=== PATIENT | male | born 1930 | race Caucasian/White ===

== ENCOUNTER → 2018-04-17 | Outpatient (CLI) | payer OTHER, MEDICARE | END | disposition home or self-care (01) | LOC: C.LABOUTLO 17:28 | PROVIDERS: ATTEND Internal Medicine | DX: R19.7 Diarrhea, unspecified (principal) ==

== ENCOUNTER 2018-05-04 19:55 | Inpatient (IN) | payer OTHER, MEDICARE ==
[~2018-05-04] VITALS: Ht 180.3 cm; Wt 66.0 kg
[2018-05-04] MEDS ORDERED: SODIUM CHLORIDE 0.9% 1000ML 1,000 ML IV ONE (19:58)
[2018-05-04 20:20] LABS: HEMATOCRIT 45.2 % (42-52); HEMOGLOBIN 14.7 g/dL (14.0-18.0); MEAN CELL VOLUME 91.3 fL (80-100); MEAN CORPUSCULAR HEMOGLOBIN 29.7 pg (25-34); MEAN CORPUSCULAR HGB CONC 32.5 g/dl (32-36); MEAN PLATELET VOLUME 10.6 fL (7.4-10.4); PLATELET COUNT 311 K/uL (130-400); RED CELL DISTRIBUTION WIDTH CV 15.7 % (11.5-14.5); RED CELL DISTRIBUTION WIDTH SD 51.6 fL (36.4-46.3); WHITE BLOOD COUNT 26.25 K/uL (4.8-10.8)
--- NOTE | 2018-05-04 20:22 | DIAGNOSTIC IMAGING REPORT ---
CHEST ONE VIEW PORTABLE CLINICAL HISTORY: Sepsis. COMPARISON STUDY: No previous studies for comparison. FINDINGS: Evaluation is suboptimal given difficulty positioning. No pneumothorax or definite pleural effusion is noted. There is bibasilar interstitial thickening and airspace opacities. Median sternotomy wires are noted. Cardiac size is normal. There are no radiographic evidence of pulmonary edema. IMPRESSION: Bibasilar opacities and interstitial thickening which favor pneumonia. Atelectasis or pulmonary edema could appear similar. Radiographic follow-up is recommended. Electronically signed by: Carlos Hollis M.D. 05/04/2018 8:21 PM Dictated Date/Time: 05/04/2018 8:20 PM
[2018-05-04] MEDS ORDERED: NURSING VERBAL MED ORDER ONE ×2 (20:30→22:45)
[2018-05-04] MEDS ORDERED: SODIUM CHLORIDE 0.9% 1000ML 1,000 ML IV STA (20:31)
[2018-05-04] MEDS ORDERED: PIPERACILLIN/TAZOBACTAM 4.5 GM/100ML D5W IV STA (20:31)
[2018-05-04 20:34] LABS: INR 1.2 (0.9-1.1); PTT PATIENT 26.2 SECONDS (21.0-31.0)
[2018-05-04 20:37] LABS: ISTAT CREATININE 1.7 mg/dl (0.6-1.3); ISTAT IONIZED CALCIUM 1.03 mmol/l (1.12-1.32); ISTAT POTASSIUM 3.9 mEq/L (3.3-5.0)
[2018-05-04 20:41] LABS: ALBUMIN 2.6 gm/dl (3.4-5.0); CALCIUM 8.6 mg/dl (8.5-10.1); CKMB 1.7 ng/ml (0.5-3.6); CREATININE 1.91 mg/dl (0.60-1.40); POTASSIUM 3.9 mmol/L (3.5-5.1); TOTAL PROTEIN 7.3 gm/dl (6.4-8.2)
[2018-05-04] MEDS ORDERED: OPTIRAY 320 IV PRN (20:45)
[2018-05-04] MEDS ORDERED: PATIENT'S ALLERGY INFO NEEDS ENTERED STA (21:13)
[2018-05-04] MEDS ORDERED: RISP0.5T10 PO (21:25)
[2018-05-04] MEDS ORDERED: POTA10CA28 PO (21:25)
[2018-05-04] MEDS ORDERED: ASPI81TA28 PO (21:25)
[2018-05-04] MEDS ORDERED: FRS/40 PO (21:25)
[2018-05-04] MEDS ORDERED: ACET-1693 PO (21:25)
[2018-05-04] MEDS ORDERED: DIPH-416 PO (21:25)
[2018-05-04] MEDS ORDERED: PYRI100T4 PO (21:25)
[2018-05-04] MEDS ORDERED: MELA3CAP PO (21:25)
[2018-05-04] MEDS ORDERED: SIMV80TA2 PO (21:25)
[2018-05-04] MEDS ORDERED: NYST1POW7 TOP (21:25)
[2018-05-04] MEDS ORDERED: CALMOSEPTINE OINT TOP (21:25)
[2018-05-04] MEDS ORDERED: METF500T5 PO (21:25)
[2018-05-04] MEDS ORDERED: LACTCAP3 PO (21:25)
[2018-05-04] MEDS ORDERED: [UNRECOGNIZED DRUG - CODE] PO (21:25)
[2018-05-04 21:38] LABS: BASO % 0.2 %; BASO ABS # 0.04 K/uL (0-0.2); EOS % 0.1 %; EOS ABS # 0.02 K/uL (0-0.5); IG# 0.17 K/uL (0.00-0.02); LYMPH % 4.3 %; LYMPH ABS # 1.14 K/uL (1.2-3.4); MONO % 3.7 %; MONO ABS # 0.98 K/uL (0.11-0.59); NEUT % 91.1 %
--- NOTE | 2018-05-04 21:44 | Progress Note ---
Progress Note Post Crystalloid Evaluation Date: May 04, 2018 Time: 21:45 Subjective Cough symptoms, hypoxemia noted at dementia unit. Decreased mentation noted. Physical Exam Vital Signs: Vital Signs Date Time Temp Pulse Resp B/P (MAP) Pulse Ox O2 Delivery O2 Flow Rate FiO2 05/04/18 21:31 134/77 05/04/18 21:30 133 19 99 Oxymask 4.0 05/04/18 20:28 38.7 Lungs: + decreased breath sounds, + rhonchi Heart: + tachycardia Peripheral Pulse: Weak Capillary Refill: Delayed (2 seconds or longer) Skin: Pallor Assessment & Plan Presence of: Severe Sepsis Severe sepsis SIRS plus hypoxemia plus ARF plus lactic acid elevation Possible sources : HCAP/ possible aspiration UTI Diarrhea rule out C. difficile Cultures, IV Zosyn, Vancomycin Stool C. difficile, IV Flagyl until C. difficile ruled out; PO Vanco if stool C. difficile negative IVF, follow lactic acid
--- NOTE | 2018-05-04 21:59 | DIAGNOSTIC IMAGING REPORT ---
CT ANGIOGRAPHY OF THE CHEST, PULMONARY EMBOLUS PROTOCOL CLINICAL HISTORY: Shortness of breath. Unresponsive. COMPARISON STUDY: Chest radiograph May 04, 2018. TECHNIQUE: Following IV administration of 94 mL of Optiray-320, helical axial images of the chest were obtained utilizing the pulmonary embolus protocol. Maximal intensity projections and sagittal and coronal reformats were viewed on an independent 3D workstation. IV contrast was administered without complication. A dose lowering technique was utilized adhering to the principles of ALARA. CT DOSE: 1414.34 mGy.cm FINDINGS: There are several small segmental pulmonary emboli within the right upper lobe. The heart is moderately enlarged. There are median sternotomy wires and postoperative findings consistent with bypass grafting. There is no pericardial effusion. Mildly enlarged right hilar lymph nodes measure up to 1.3 cm in short axis diameter. There is no pneumothorax or pleural effusion. Extensive bilateral lower lobe airspace opacity is noted with mild opacities within the lingula and moderate right middle lobe opacity. No cavitation is present. Moderate secretions within the distal trachea and right mainstem bronchus are noted. No suspicious osseous lesion is noted. There is an old T12 compression fracture. The abdomen and pelvis will be reported separately. IMPRESSION: 1. Several small segmental pulmonary emboli within the right upper lobe. Evaluation for additional pulmonary emboli compromised given respiratory motion artifact. 2. Extensive bilateral airspace opacities, greatest within the lower lobes. The findings favor pneumonia although pulmonary edema could appear similar. 3. Moderate cardiomegaly. 4. Mild right hilar lymphadenopathy which is likely reactive. A follow-up chest CT in 3 months to ensure resolution is recommended. 5. Moderate mucus within the distal trachea and right mainstem bronchus. Electronically signed by: Carlos Hollis M.D. 05/04/2018 9:58 PM Dictated Date/Time: 05/04/2018 9:48 PM
[2018-05-04] MEDS ORDERED: ACETAMINOPHEN IV 100 ML IV STA (22:00)
--- NOTE | 2018-05-04 22:07 | DIAGNOSTIC IMAGING REPORT ---
CT OF THE ABDOMEN AND PELVIS WITH CONTRAST CLINICAL HISTORY: Sepsis. COMPARISON STUDY: None. TECHNIQUE: Following IV administration of 94 mL of Optiray-320, axial images of the abdomen and pelvis were obtained from the lung bases to the proximal femurs. Images were reviewed in the axial, sagittal, and coronal planes. IV contrast was administered without complication. A dose lowering technique was utilized adhering to the principles of ALARA. Scan was repeated due to significant motion artifact on the initial exam. FINDINGS: Please note that the chest CT will be reported separately. Extensive bilateral airspace opacities are noted. The liver, spleen, adrenal glands and kidneys are unremarkable. There is no biliary or pancreatic ductal dilatation. There is no hydronephrosis. Pancreatic glandular atrophy is noted. No pneumatosis, free air or portal venous gas is noted. This exam is mildly compromised by motion artifact. Note is made of apparent wall thickening of the a sending colon. There is colonic diverticulosis. There is no evidence for acute diverticulitis. Moderate amount of stool within the rectum is noted. A Torres balloon and gas are noted within the bladder. Bladder wall thickening with mild adjacent infiltration. Prostate gland is surgically absent. Images of the pelvis are degraded by streak artifact from a left hip arthroplasty. Postoperative findings within the spine are noted. Old T12 compression fracture is noted. No suspicious osseous lesion is noted. IMPRESSION: 1. Apparent mild wall thickening of the descending colon. Findings are likely due to underdistention however a nonspecific colitis could appear similar. No bowel obstruction. Colonic diverticulosis without evidence for acute diverticulitis. 2. Study mildly compromised by motion artifact. 3. Bladder wall thickening which could be correlated with urinalysis to exclude cystitis. 4. Moderate amount of stool within the rectum. Electronically signed by: Carlos Hollis M.D. 05/04/2018 10:06 PM Dictated Date/Time: 05/04/2018 9:58 PM
[2018-05-04] MEDS ORDERED: METRONIDAZOLE / NSS 500 MG IV STA (22:11)
[2018-05-04] MEDS ORDERED: METRONIDAZOLE 500MG / 100ML NSS IV ONE (22:15)
[2018-05-04] MEDS ORDERED: SODIUM CHLOR 0.45% + 20MEQ KCL 1,000 ML IV SCH ×2 (22:15→23:30)
[2018-05-04] MEDS ORDERED: SODIUM CHLORIDE 0.9% 500ML 500 ML IV ONE (22:45)
--- NOTE | 2018-05-04 22:49 | EMERGENCY ROOM VISIT NOTE ---
History Report prepared by Juvenal: Nargis Blood Under the Supervision of: Sejal MaravillaO. First contact with patient: 19:42 Stated Complaint: UNRESPONSIVE History of Present Illness The patient is a 80 year old male who presents to the Emergency Room with complaints of an episode of unresponsiveness that occurred tonight. The patient is a resident of [facility]. Per EMS, the patient was wheeling around and talking around 1800. They note that when they arrived he was slumped in a wheelchair. They state that the patient had a fever of 102.5-103.0. They note that he took Tylenol at 1830 and it reduced the fever to 100. Per EMS, the patient was tachycardic at 150, was 86% on room air, had diminished breath sounds, and is on 4 liters of oxygen via nasal canula. He received 500 ml of fluids. Source of History: EMS History Limited By: AMS Onset: 1829 today Quality: other (unresponsiveness ) Timing: other (episode) Associated Symptoms: + fevers Note: The patient complains of tachycardia. Review of Systems See HPI for pertinent positives & negatives. A total of 10 systems reviewed and were otherwise negative. Past Medical & Surgical Medical Problems: (1) Alzheimer's dementia (2) Atrial fibrillation (3) CAD (coronary artery disease) (4) DM type 2 (diabetes mellitus, type 2) (5) Gastroparesis (6) GERD (gastroesophageal reflux disease) (7) HTN (hypertension) (8) Hyperlipidemia (9) Insomnia (10) Respiratory failure, acute Current/Historical Medications Scheduled Aspirin (Aspirin Ec), 81 MG PO DAILY Divalproex Sodium (Divalproex Sodium Dr), 125 MG PO HS Furosemide (Lasix), 40 MG PO Q2D Lactobacillus (Acidophilus), 175 MG PO BID Melatonin (Melatonin), 3 MG PO HS Metformin Hcl Er (Glucophage Er), 500 MG PO QPM Potassium Chloride (Micro-K Ext Rel), 10 MEQ PO DAILY Pyridoxine (Vitamin B6), 100 MG PO QPM Risperidone (Risperdal), 0.5 MG PO BID Simvastatin (Zocor), 40 MG PO QPM [Calmoseptine Oint], 1 APPLN TOP AMPM Scheduled PRN Acetaminophen Tab (Tylenol), 325 MG PO Q4 PRN for Pain Diphenoxylate/Atropine (Lomotil), 1 TAB PO QID PRN for Diarrhea Nystatin (Topical) (Nystatin), 1 APPLN TOP BID PRN for RASH Allergies Coded Allergies: Cat Dander (Verified Allergy, Unknown, UNKNOWN, 05/04/18) Shellfish (Verified Allergy, Unknown, UNKNOWN, 05/04/18) Physical Exam Vital Signs Date Time Temp Pulse Resp B/P (MAP) Pulse Ox O2 Delivery O2 Flow Rate FiO2 05/04/18 23:01 112/61 05/04/18 22:53 19 100 05/04/18 22:48 99/57 05/04/18 22:46 61/30 05/04/18 22:40 78/41 05/04/18 22:36 98 20 95 Oxymask 4.0 05/04/18 22:25 36.9 05/04/18 22:21 102 20 95 05/04/18 22:16 92/59 05/04/18 22:06 111 19 97 05/04/18 22:01 97/63 05/04/18 21:51 108 21 97 05/04/18 21:46 114/58 05/04/18 21:36 97 20 96 05/04/18 21:31 134/77 05/04/18 21:30 133 19 99 Oxymask 4.0 05/04/18 21:23 109 05/04/18 21:18 93 05/04/18 21:16 128/69 05/04/18 21:15 132 20 96 05/04/18 20:55 115 22 100 Oxymask 4.0 05/04/18 20:46 127/69 05/04/18 20:40 110 23 98 05/04/18 20:31 117/68 05/04/18 20:28 38.7 05/04/18 20:25 153 27 96 Oxymask 4.0 05/04/18 20:16 92/47 05/04/18 20:13 Oxymask 4.0 05/04/18 20:10 153 05/04/18 20:10 121 29 90 05/04/18 20:06 84/51 05/04/18 20:04 150 05/04/18 20:04 154 31 84/51 88 Room Air Physical Exam GENERAL: Listlessness and very lethargic. Slow to answer questions and follow commands. EYES: The conjunctivae are clear. The pupils are round and reactive. EARS, NOSE, MOUTH AND THROAT: Mucous membranes were dry. NECK: The neck is nontender and supple. RESPIRATORY: Lung sounds diminished throughout. Right greater than left. Significant tachypnea. CARDIOVASCULAR: Tachycardia with no definite murmur notes. GASTROINTESTINAL: The abdomen is soft. Bowel sounds are present in all quadrants. Abdomen is nontender. MUSCULOSKELETAL/EXTREMITIES: There is no evidence of gross deformity. Full range of motion is noted in the hips and shoulders. SKIN: Trace pedal edema bilaterally. NEUROLOGIC: Answers to name. Strength was diminished but symmetric. Medical Decision & Procedures ER Provider Diagnostic Interpretation: Radiology results as stated below per my review and radiologist interpretation: CHEST ONE VIEW PORTABLE CLINICAL HISTORY: Sepsis. COMPARISON STUDY: No previous studies for comparison. FINDINGS: Evaluation is suboptimal given difficulty positioning. No pneumothorax or definite pleural effusion is noted. There is bibasilar interstitial thickening and airspace opacities. Median sternotomy wires are noted. Cardiac size is normal. There are no radiographic evidence of pulmonary edema. IMPRESSION: Bibasilar opacities and interstitial thickening which favor pneumonia. Atelectasis or pulmonary edema could appear similar. Radiographic follow-up is recommended. Electronically signed by: Carlos Hollis M.D. 05/04/2018 8:21 PM Dictated Date/Time: 05/04/2018 8:[address] ANGIOGRAPHY OF THE CHEST, PULMONARY EMBOLUS PROTOCOL CLINICAL HISTORY: Shortness of breath. Unresponsive. COMPARISON STUDY: Chest radiograph May 04, 2018. TECHNIQUE: Following IV administration of 94 mL of Optiray-320, helical axial images of the chest were obtained utilizing the pulmonary embolus protocol. Maximal intensity projections and sagittal and coronal reformats were viewed on an independent 3D workstation. IV contrast was administered without complication. A dose lowering technique was utilized adhering to the principles of ALARA. CT DOSE: 1414.34 mGy.cm FINDINGS: There are several small segmental pulmonary emboli within the right upper lobe. The heart is moderately enlarged. There are median sternotomy wires and postoperative findings consistent with bypass grafting. There is no pericardial effusion. Mildly enlarged right hilar lymph nodes measure up to 1.3 cm in short axis diameter. There is no pneumothorax or pleural effusion. Extensive bilateral lower lobe airspace opacity is noted with mild opacities within the lingula and moderate right middle lobe opacity. No cavitation is present. Moderate secretions within the distal trachea and right mainstem bronchus are noted. No suspicious osseous lesion is noted. There is an old T12 compression fracture. The abdomen and pelvis will be reported separately. IMPRESSION: 1. Several small segmental pulmonary emboli within the right upper lobe. Evaluation for additional pulmonary emboli compromised given respiratory motion artifact. 2. Extensive bilateral airspace opacities, greatest within the lower lobes. The findings favor pneumonia although pulmonary edema could appear similar. 3. Moderate cardiomegaly. 4. Mild right hilar lymphadenopathy which is likely reactive. A follow-up chest CT in 3 months to ensure resolution is recommended. 5. Moderate mucus within the distal trachea and right mainstem bronchus. Electronically signed by: Carlos Hollis M.D. 05/04/2018 9:58 PM Dictated Date/Time: 05/04/2018 9:[address] OF THE ABDOMEN AND PELVIS WITH CONTRAST CLINICAL HISTORY: Sepsis. COMPARISON STUDY: None. TECHNIQUE: Following IV administration of 94 mL of Optiray-320, axial images of the abdomen and pelvis were obtained from the lung bases to the proximal femurs. Images were reviewed in the axial, sagittal, and coronal planes. IV contrast was administered without complication. A dose lowering technique was utilized adhering to the principles of ALARA. Scan was repeated due to significant motion artifact on the initial exam. FINDINGS: Please note that the chest CT will be reported separately. Extensive bilateral airspace opacities are noted. The liver, spleen, adrenal glands and kidneys are unremarkable. There is no biliary or pancreatic ductal dilatation. There is no hydronephrosis. Pancreatic glandular atrophy is noted. No pneumatosis, free air or portal venous gas is noted. This exam is mildly compromised by motion artifact. Note is made of apparent wall thickening of the a sending colon. There is colonic diverticulosis. There is no evidence for acute diverticulitis. Moderate amount of stool within the rectum is noted. A Torres balloon and gas are noted within the bladder. Bladder wall thickening with mild adjacent infiltration. Prostate gland is surgically absent. Images of the pelvis are degraded by streak artifact from a left hip arthroplasty. Postoperative findings within the spine are noted. Old T12 compression fracture is noted. No suspicious osseous lesion is noted. IMPRESSION: 1. Apparent mild wall thickening of the descending colon. Findings are likely due to underdistention however a nonspecific colitis could appear similar. No bowel obstruction. Colonic diverticulosis without evidence for acute diverticulitis. 2. Study mildly compromised by motion artifact. 3. Bladder wall thickening which could be correlated with urinalysis to exclude cystitis. 4. Moderate amount of stool within the rectum. Electronically signed by: Carlos Hollis M.D. 05/04/2018 10:06 PM Dictated Date/Time: 05/04/2018 9:58 PM Laboratory Results Test 05/04/18 20:07 05/04/18 20:19 05/04/18 20:23 05/04/18 20:35 Erythrocyte Sedimentation Rate 56 mm/hr (0-14) Prothrombin Time 12.8 SECONDS (9.0-12.0) Prothromb Time International Ratio 1.2 (0.9-1.1) Venous Blood pH 7.47 (7.36-7.41) Venous Blood Partial Pressure CO2 42 mmHg (38.0-50.0) Venous Blood Partial Pressure O2 41 mmHg Venous Blood HCO3 30 mmol/L Venous Blood Oxygen Saturation 76.1 % Venous Blood Base Excess 5.4 mEq/L Estimated Average Glucose 169 mg/dl Hemoglobin A1c 7.5 % (4.5-5.6) Magnesium Level 2.1 mg/dl (1.8-2.4) Total Bilirubin 2.7 mg/dl (0.2-1) Aspartate Amino Transf (AST/SGOT) 22 U/L (15-37) Alanine Aminotransferase (ALT/SGPT) 26 U/L (12-78) Alkaline Phosphatase 110 U/L (45-117) Total Creatine Kinase 84 U/L (39-308) Creatine Kinase MB 1.7 ng/ml (0.5-3.6) Creatine Kinase MB Ratio 2.0 (0-3.0) C-Reactive Protein 14.10 mg/dl (0-0.29) Pro-B-Type Natriuretic Peptide 619 pg/ml (0-1800) Total Protein 7.3 gm/dl (6.4-8.2) Albumin 2.6 gm/dl (3.4-5.0) Globulin 4.7 gm/dl (2.5-4.0) Albumin/Globulin Ratio 0.6 (0.9-2) Lipase 68 U/L (73-393) Valproic Acid (Depakene) Level 12 mcg/ml (50-100) Bedside Lactic Acid Venous 4.12 mmol/L (0.90-1.70) Bedside Hemoglobin 15.3 g/dl (14.0-18.0) Bedside Hematocrit 45 % (42-52) Bedside Sodium 151 mEq/L (135-144) Bedside Potassium 3.9 mEq/L (3.3-5.0) Bedside Chloride 104 mEq/L (101-112) Bedside Total CO2 30 mEq/l (24-31) Bedside Blood Urea Nitrogen 32 mg/dl (7-18) Bedside Creatinine 1.7 mg/dl (0.6-1.3) Bedside Glucose (other) 251 mg/dl (70-99) Bedside Ionized Calcium (Nadya) 1.03 mmol/l (1.12-1.32) Urine Color DK YELLOW Urine Appearance TURBID (CLEAR) Urine pH 5.0 (4.5-7.5) Urine Specific [place] 1.015 (1.000-1.030) Urine Protein TRACE (NEG) Urine Glucose (UA) NEG (NEG) Urine Ketones NEG (NEG) Urine Occult Blood 1+ (NEG) Urine Nitrite POS (NEG) Urine Bilirubin NEG (NEG) Urine Urobilinogen NEG (NEG) Urine Leukocyte Esterase LARGE (NEG) Urine WBC (Auto) >30 /hpf (0-5) Urine RBC (Auto) 5-10 /hpf (0-4) Urine Hyaline Casts (Auto) 10-30 /lpf (0-5) Urine Epithelial Cells (Auto) 10-20 /lpf (0-5) Urine Bacteria (Auto) 1+ (NEG) Urine Pathogenic Casts /lpf (0) Test 05/04/18 22:30 Thyroid Stimulating Hormone (TSH) 0.988 uIu/ml (0.300-4.500) Laboratory results per my review. Medications Administered Medications (Trade) Dose Ordered Sig/Steve Route Start Time Stop Time Status Last Admin Dose Admin Sodium Chloride 1,000 ml @ 999 mls/hr Q1H1M ONCE IV 05/04/18 19:58 05/04/18 20:58 DC 05/04/18 20:12 999 MLS/HR Piperacillin Sod/ Tazobactam Sod (Zosyn Iv) 4.5 gm NOW STAT IV 05/04/18 20:31 05/04/18 20:32 DC 05/04/18 20:40 4.5 GM Sodium Chloride 1,000 ml @ 999 mls/hr Q1H1M STAT IV 05/04/18 20:31 05/04/18 21:31 DC 05/04/18 20:28 999 MLS/HR Acetaminophen 100 ml @ 400 mls/hr ONE STAT IV 05/04/18 22:00 05/04/18 22:35 DC 05/04/18 22:31 400 MLS/HR Metronidazole 100 ml @ 100 mls/hr ONE STAT IV 05/04/18 22:11 05/04/18 22:35 DC 05/04/18 22:32 100 MLS/HR Sodium Chloride 500 ml @ 500 mls/hr Q1H ONCE IV 05/04/18 22:45 05/04/18 23:44 DC 05/04/18 22:44 500 MLS/HR Vancomycin HCl 1500 mg/Sodium Chloride 530 ml @ 200 mls/hr NOW STAT IV 05/04/18 23:02 05/05/18 01:40 DC 05/04/18 23:40 200 MLS/HR ECG Per My Interpretation Indication: altered mental status Rate (beats per minute): 149 Rhythm: sinus tachycardia Findings: PVC, other (diffuse ST depressions noted) Comparison ECG Date: no prior available ED Course 1950: The patient was evaluated in room B1. A complete history and physical examination were performed. 1957: Ordered Sodium Chloride 1,000 ml @ 999 mls/hr IV. 2029: Ordered Sodium Chloride 1,000 ml @ 999 mls/hr IV, Zosyn IV 4.5 gm IV. 2044: Ordered Ioversol 111 ml IV. 0: Ordered Acetaminophen 100 ml @ 400 mls/hr IV. 2211: Ordered Metronidazole 100 ml @ 100 mls/hr IV. 2215: Ordered Potassium Chloride/Sodium Chloride 1,000 ml @ 75 mls/hr IV. 2217: Ordered Heparin Sodium/Dextose 1 ea. 2245: Ordered Sodium Chloride 500 ml @ 500 mls/hr. 2246: I discussed the patient's case with Dr. Garduno- Cleopatra Gandhi. The patient will be evaluated for further management. 7: Upon reevaluation, the patient is resting. I discussed results and treatment plan with his family. They verbalizes agreement and understanding. I spoke with Dr. Garduno- Cleopatra Gandhi. The patient will be evaluated for further management and care. Medical Decision Prior records/ancillary studies reviewed. Triage Nursing notes reviewed. Additional history obtained from EMS. The patient's history was concerning for fever. Differential diagnosis: Etiologies such as viral syndrome, otitis, pharyngitis, pneumonia, influenza, meningitis, urinary tract infection, sepsis, bacteremia, as well as others were entertained. the current condition. The patient is an 87-year-old male who presented to the emergency department by ambulance. I received a medical command call about this patient. They were very concerned about sepsis as the patient was tachypneic and had an altered mental status. The patient was found to be very dehydrated by physical exam as well as laboratory studies. The patient was also found to have a very significant urinary tract infection. On radiographic studies the patient was found to have signs of pneumonia as well as pulmonary embolism. The patient's condition was very severe. Nursing staff discussed the patient's condition with her daughter who called to inform us that the patient had advanced directives and did not wish to have any heroic measures. There was nothing in writing but at this time we will not pursue any advanced airway in this patient. He is currently guarding his airway. I discussed patient's laboratory and radiographic studies with him although with his altered mental status I am unsure if he understands the significance of his findings at this time. He was treated with IV fluids as well as IV antibiotics. We discussed putting a central line in the patient given the patient's wishes we will not pursue this at this time. I discussed patient's condition with the on-call [facility] hospitalist group. They have agreed to evaluate patient in the emergency department for further management and disposition. Medication Reconcilliation Current Medication List: was personally reviewed by ct Blood Pressure Screening Patient's blood pressure: Normal blood pressure Consults Time Called: 2239 Consulting Physician: Dr. Garduno- Cleopatra Gandhi Returned Call: [phone]: I discussed the patient's case with Dr. Toya Gandhi. The patient will be evaluated for further management. Impression Primary Impression: Sepsis Additional Impressions: Dehydration Pyelonephritis Altered mental status Pulmonary embolism Critical Care I have personally spent greater than 75 minutes of critical care time in the direct management of this patient. This includes bedside care, interpretation of diagnostic studies, and testing, discussion with consultants, patient, and family members, and other required patient management activities. This 75 minutes is in excess of all separately billable procedures. Scribe Attestation The scribe's documentation has been prepared under my direction and personally reviewed by me in its entirety. I confirm that the note above accurately reflects all work, treatment, procedures, and medical decision making performed by me. Departure Information Dispostion Being Evaluated By Hospitalist Forms HOME CARE DOCUMENTATION FORM, IMPORTANT VISIT INFORMATION, WORK / SCHOOL INSTRUCTIONS Problem Qualifiers Primary Impression: Sepsis Sepsis type: sepsis due to unspecified organism Qualified Codes: A41.9 - Sepsis, unspecified organism Additional Impressions: Altered mental status Altered mental status type: unspecified Qualified Codes: R41.82 - Altered mental status, unspecified Pulmonary embolism Pulmonary embolism type: other Chronicity: acute Acute cor pulmonale presence: without acute cor pulmonale Qualified Codes: I26.99 - Other pulmonary embolism without acute cor pulmonale
--- NOTE | 2018-05-04 23:00 | History and Physical ---
History & Physical Date & Time of Service: May 04, 2018 at 22:16 Chief Complaint: Unresponsive [facility] History of Present Illness Source: hospital records, assisted Pt is 87 y/o M with PMH Alzheimer dementia, DM II, A. fib, CAD, HTN, gastroparesis, GERD, HLD, insomnia presented to ER from [facility] for lethargy and altered mental status. Limited history obtained from staff and [facility]. Staff report patient usually ambulates with walker. Reports is usually confused but does talk. Reports patient on mechanical soft diet. Reports this evening he was drinking and choked. States at dinner patient was lethargic and noted to be short of breath. Patient felt hot and EMS was called. Per report when EMS arrived patient was slumped over in chair, febrile and tachycardic and was given 500 mL NSS in route. Noted in patient's med rec that he was on Zithromax on 04/24/18-04/28/18. Staff person spoke with this evening was unsure why patient was on Zithromax. Staff reports patient has had diarrhea for the past 2-3 weeks. Negative C. difficile test on 04/17/18. Reports patient is on hospice care. Awaiting to speech to family for further information Past Medical/Surgical History Medical Problems: (1) Alzheimer's dementia Status: Chronic (2) Atrial fibrillation Status: Chronic (3) CAD (coronary artery disease) Status: Chronic (4) DM type 2 (diabetes mellitus, type 2) Status: Chronic (5) Gastroparesis Status: Chronic (6) GERD (gastroesophageal reflux disease) Status: Chronic (7) HTN (hypertension) Status: Chronic (8) Hyperlipidemia Status: Chronic (9) Insomnia Status: Chronic SURGICAL HISTORY unable to obtain at this time secondary to pt's mental status Family History Unable to obtain secondary to pt's mental status Social History Smoking Status: Unknown if Ever Smoked Allergies Coded Allergies: Cat Dander (Verified Allergy, Unknown, UNKNOWN, 05/04/18) Shellfish (Verified Allergy, Unknown, UNKNOWN, 05/04/18) Home Medications Scheduled Aspirin (Aspirin Ec), 81 MG PO DAILY Divalproex Sodium (Divalproex Sodium Dr), 125 MG PO HS Furosemide (Lasix), 40 MG PO Q2D Lactobacillus (Acidophilus), 175 MG PO BID Melatonin (Melatonin), 3 MG PO HS Metformin Hcl Er (Glucophage Er), 500 MG PO QPM Potassium Chloride (Micro-K Ext Rel), 10 MEQ PO DAILY Pyridoxine (Vitamin B6), 100 MG PO QPM Risperidone (Risperdal), 0.5 MG PO BID Simvastatin (Zocor), 40 MG PO QPM [Calmoseptine Oint], 1 APPLN TOP AMPM Scheduled PRN Acetaminophen Tab (Tylenol), 325 MG PO Q4 PRN for Pain Diphenoxylate/Atropine (Lomotil), 1 TAB PO QID PRN for Diarrhea Nystatin (Topical) (Nystatin), 1 APPLN TOP BID PRN for RASH Review of Systems Unable to further obtain ROS secondary to pt's mental status Physical Exam Vital Signs Date Time Temp Pulse Resp B/P (MAP) Pulse Ox O2 Delivery O2 Flow Rate FiO2 05/04/18 21:31 134/77 05/04/18 21:30 133 19 99 Oxymask 4.0 05/04/18 21:23 109 05/04/18 21:18 93 05/04/18 21:16 128/69 05/04/18 21:15 132 20 96 05/04/18 20:55 115 22 100 Oxymask 4.0 05/04/18 20:46 127/69 05/04/18 20:40 110 23 98 05/04/18 20:31 117/68 05/04/18 20:28 38.7 05/04/18 20:25 153 27 96 Oxymask 4.0 05/04/18 20:16 92/47 05/04/18 20:13 Oxymask 4.0 05/04/18 20:10 153 05/04/18 20:10 121 29 90 05/04/18 20:06 84/51 05/04/18 20:04 150 05/04/18 20:04 154 31 84/51 88 Room Air General Appearance: + thin, + pertinent finding (ill appearing, no apparent distress at this time - sitting upright in bed with oxymask on, resp: 20, no retractions) Head: normocephalic, atraumatic Eyes: PERRL, sclerae normal ENT: + pertinent finding (mucous membranes dry) Neck: trachea midline Respiratory/Chest: + decreased breath sounds Cardiovascular: + tachycardia (irregular) Abdomen/GI: normal bowel sounds, soft (no apparent tenderness to palpation) Extremities/Musculoskelatal: + pertinent finding (BLE with venous stasis changes. no significant edema or warmth/erythema) Neurologic/Psych: + pertinent finding (awake, non-verbal, does not follow commands) Skin: + pertinent finding (hot, dry) Diagnostics Laboratory Results Results Past 24 Hours Test 05/04/18 20:07 05/04/18 20:10 05/04/18 20:19 05/04/18 20:23 Range/Units White Blood Count 26.25 4.8-10.8 K/uL Red Blood Count 4.95 4.7-6.1 M/uL Hemoglobin 14.7 14.0-18.0 g/dL Hematocrit 45.2 42-52 % Mean Corpuscular Volume 91.3 80-100 fL Mean Corpuscular Hemoglobin 29.7 25-34 pg Mean Corpuscular Hemoglobin Concent 32.5 32-36 g/dl Platelet Count 311 130-400 K/uL Mean Platelet Volume 10.6 7.4-10.4 fL Neutrophils (%) (Auto) 91.1 % Lymphocytes (%) (Auto) 4.3 % Monocytes (%) (Auto) 3.7 % Eosinophils (%) (Auto) 0.1 % Basophils (%) (Auto) 0.2 % Neutrophils # (Auto) 23.90 1.4-6.5 K/uL Lymphocytes # (Auto) 1.14 1.2-3.4 K/uL Monocytes # (Auto) 0.98 0.11-0.59 K/uL Eosinophils # (Auto) 0.02 0-0.5 K/uL Basophils # (Auto) 0.04 0-0.2 K/uL RDW Standard Deviation 51.6 36.4-46.3 fL RDW Coefficient of Variation 15.7 11.5-14.5 % Immature Granulocyte % (Auto) 0.6 % Immature Granulocyte # (Auto) 0.17 0.00-0.02 K/uL Erythrocyte Sedimentation Rate 56 0-14 mm/hr Prothrombin Time 12.8 9.0-12.0 SECONDS Prothromb Time International Ratio 1.2 0.9-1.1 Activated Partial Thromboplast Time 26.2 21.0-31.0 SECONDS Partial Thromboplastin Ratio 1.0 Venous Blood pH 7.47 7.36-7.41 Venous Blood Partial Pressure CO2 42 38.0-50.0 mmHg Venous Blood Partial Pressure O2 41 mmHg Venous Blood HCO3 30 mmol/L Venous Blood Oxygen Saturation 76.1 % Venous Blood Base Excess 5.4 mEq/L Sodium Level 147 136-145 mmol/L Potassium Level 3.9 3.5-5.1 mmol/L Chloride Level 108 98-107 mmol/L Carbon Dioxide Level 30 21-32 mmol/L Anion Gap 9.0 21.0 16-25 mmol/L Blood Urea Nitrogen 33 7-18 mg/dl Creatinine 1.91 0.60-1.40 mg/dl Est Creatinine Clear Calc Drug Dose 24.7 ml/min Estimated GFR () 35.7 Estimated GFR (Non- 30.8 BUN/Creatinine Ratio 17.1 10-20 Random Glucose 239 70-99 mg/dl Lactic Acid Level 4.1 0.4-2.0 mmol/L Calcium Level 8.6 8.5-10.1 mg/dl Magnesium Level 2.1 1.8-2.4 mg/dl Total Bilirubin 2.7 0.2-1 mg/dl Aspartate Amino Transf (AST/SGOT) 22 15-37 U/L Alanine Aminotransferase (ALT/SGPT) 26 12-78 U/L Alkaline Phosphatase 110 45-117 U/L Total Creatine Kinase 84 39-308 U/L Creatine Kinase MB 1.7 0.5-3.6 ng/ml Creatine Kinase MB Ratio 2.0 0-3.0 Troponin I 0.042 0-0.045 ng/ml C-Reactive Protein 14.10 0-0.29 mg/dl Pro-B-Type Natriuretic Peptide 619 0-1800 pg/ml Total Protein 7.3 6.4-8.2 gm/dl Albumin 2.6 3.4-5.0 gm/dl Globulin 4.7 2.5-4.0 gm/dl Albumin/Globulin Ratio 0.6 0.9-2 Lipase 68 73-393 U/L Valproic Acid (Depakene) Level 12 50-100 mcg/ml Bedside Lactic Acid Venous 3.74 4.12 0.90-1.70 mmol/L Bedside Hemoglobin 15.3 14.0-18.0 g/dl Bedside Hematocrit 45 42-52 % Bedside Sodium 151 135-144 mEq/L Bedside Potassium 3.9 3.3-5.0 mEq/L Bedside Chloride 104 101-112 mEq/L Bedside Total CO2 30 24-31 mEq/l Bedside Blood Urea Nitrogen 32 7-18 mg/dl Bedside Creatinine 1.7 0.6-1.3 mg/dl Bedside Glucose (other) 251 70-99 mg/dl Bedside Ionized Calcium (Nadya) 1.03 1.12-1.32 mmol/l Test 05/04/18 20:35 05/04/18 21:44 Range/Units Urine Color DK YELLOW Urine Appearance TURBID CLEAR Urine pH 5.0 4.5-7.5 Urine Specific [place] 1.015 1.000-1.030 Urine Protein TRACE NEG Urine Glucose (UA) NEG NEG Urine Ketones NEG NEG Urine Occult Blood 1+ NEG Urine Nitrite POS NEG Urine Bilirubin NEG NEG Urine Urobilinogen NEG NEG Urine Leukocyte Esterase LARGE NEG Urine WBC (Auto) >30 0-5 /hpf Urine RBC (Auto) 5-10 0-4 /hpf Urine Hyaline Casts (Auto) 10-30 0-5 /lpf Urine Epithelial Cells (Auto) 10-20 0-5 /lpf Urine Bacteria (Auto) 1+ NEG Urine Pathogenic Casts 0 /lpf Microbiology Results 05/04/18 Blood Culture, Received Pending 05/04/18 Blood Culture, Received Pending 05/04/18 Urine Culture, Received Pending Diagnostic Radiology CXR: IMPRESSION: Bibasilar opacities and interstitial thickening which favor pneumonia. Atelectasis or pulmonary edema could appear similar. Radiographic follow-up is recommended. CT CHEST: IMPRESSION: 1. Several small segmental pulmonary emboli within the right upper lobe. Evaluation for additional pulmonary emboli compromised given respiratory motion artifact. 2. Extensive bilateral airspace opacities, greatest within the lower lobes. The findings favor pneumonia although pulmonary edema could appear similar. 3. Moderate cardiomegaly. 4. Mild right hilar lymphadenopathy which is likely reactive. A follow-up chest CT in 3 months to ensure resolution is recommended. 5. Moderate mucus within the distal trachea and right mainstem bronchus. CT ABD/PELVIS: IMPRESSION: 1. Apparent mild wall thickening of the descending colon. Findings are likely due to underdistention however a nonspecific colitis could appear similar. No bowel obstruction. Colonic diverticulosis without evidence for acute diverticulitis. 2. Study mildly compromised by motion artifact. 3. Bladder wall thickening which could be correlated with urinalysis to exclude cystitis. 4. Moderate amount of stool within the rectum. Impression Assessment and Plan Pt is 87 y/o M with PMH Alzheimer dementia, DM II, A. fib, CAD, HTN, gastroparesis, GERD, HLD, insomnia presented to ER from [facility] for lethargy and altered mental status. SEPSIS PNEUMONIA - possible aspiration UTI In ER T: 38.7, P: 150 down to 115, RR 31, BP 84/51 up to 127/69, O2 sat: 88% on room air up to 100% on oxygen mask. WBC: 26, POC lactic acid: 3.7, BUN: 33, Cr : 1.9, UA: + Nitrites, large leuk,> 30 WBC, 10-20 epithelial, 1+ bacteria Patient given 2 liters NSS, Zosyn HYPERNATREMIA Na: 147 PULMONARY EMBOLISM DIARRHEA ALZHEIMER'S DEMENTIA DM II H/O ATRIAL FIBRILLATION HTN HLD Pt's son reports pt on hospice care and wants to discuss with his sister before any further workup or treatment is done. Pt was seen with Dr Squires. See addendum for further assessment and plan Resuscitation Status VTE Prophylaxis Will order VTE Prophylaxis: Yes Assessment/Plan IM ATTENDING : Patient seen and examined. History obtained from family and records. Limited history from patient secondary to dementia. Preceding documentation by Ms. Valery Calvillo PA-C reviewed. FINAL ASSESSMENT AND PLAN as follows : 1. Acute hypoxemic respiratory failure multifactorial : acute pulmonary embolism, HCAP, possible aspiration pneumonia 2. severe sepsis SIRS plus lactic elevation plus respiratory failure plus renal failure possible sources : HCAP, possible aspiration urinary tract infection diarrhea ro cdif 2. Hx vascular dementia. 3. DM2 on oral meds, elevated blood sugars at the ER Unknown baseline control. 4. Hospice patient as per records PLAN: Patient's family requesting for medical management for now until they arrive to make final decision about comfort measures. (thru telephone conference) Supplemental O2 Cultures, Vancomycin, Zosyn stool C. diff., Flagyl for now until C. diff ruled out. May need oral Vancomycin if C. diff positive Follow lactic acid, IV fluids. Nebs, Solu-Medrol for bronchospasm Aspiration precautions IV heparin Basal insulin, ISS BG goal 140-180, check hemoglobin A1c DVT prophylaxis Heparin. DNR. Patient's son requesting of updates from providers, Mr. Ti Quiñonez thru contact number [phone].
[2018-05-04] MEDS ORDERED: VANCOMYCIN IV 1,500 MG in SODIUM CHLORIDE 0.9% 500ML 500 ML IV STA (23:02)
[2018-05-04 23:04] LABS: CREATININE 1.7 mg/dl (0.60-1.40); POTASSIUM 3.8 mmol/L (3.5-5.1)
[2018-05-04] MEDS ORDERED: LEVALBUTEROL/IPRATROPIUM NEB INH STA (23:05)
[2018-05-04] MEDS ORDERED: HEPARIN 25000 UNIT/500 ML D5W ONE (23:14)
[2018-05-04] MEDS ORDERED: VANCOMYCIN CONSULT ACTIVE PRN (23:15)
[2018-05-04] MEDS ORDERED: METHYLPREDNISOLONE IV 20 MG in SYRINGE 0 ML IV ONE (23:30)
[2018-05-04 23:32] VITALS: PULSE 88; O2SAT 97
[2018-05-04] MEDS ORDERED: IPRATROPIUM BROMIDE NEB SOLN 0.02% 2.5 ML VIAL INH STA (23:43)
[2018-05-04] MEDS ORDERED: LEVALBUTEROL 1.25MG/0.5ML NEB INH STA (23:43)
[2018-05-04] MEDS ORDERED: DEXTROSE 50% 50 ML SYR IV PRN (23:45)
[2018-05-04] MEDS ORDERED: ACETAMINOPHEN 325 MG TAB PO PRN (23:45)
[2018-05-04] MEDS ORDERED: PROCHLORPERAZINE INJ 5 MG in SYRINGE 4 ML IV PRN (23:45)
[2018-05-04] MEDS ORDERED: GLUCOSE 10 TABS/TUBE PO PRN (23:45)
[2018-05-04] MEDS ORDERED: HYDROmorphone INJ 0.5 MG/0.5 ML SYR IV PRN (23:45)
[2018-05-04] MEDS ORDERED: GLUCAGON FOR INJ 1 MG VIAL SQ PRN (23:45)
[2018-05-04] MEDS ORDERED: NITROGLYCERIN 0.4 MG SL PER TAB CHARGE SL PRN (23:45)
[2018-05-04] MEDS ORDERED: CARBOHYDRATES FOR HYPOGLYCEMIA PO PRN (23:45)
[2018-05-04] MEDS ORDERED: GLUCOSE 40% GEL 15 GM TUBE PO PRN (23:45)
[2018-05-04] MEDS ORDERED: OXYCODONE/ACETAMINOPHEN 5-325 TAB PO PRN (23:45)
[2018-05-05] VITALS (11 sets, daily range): BP systolic 91–108; BP diastolic 50–62; PULSE 66–130; TEMP 36.3–37; O2SAT 94–99; Ht 180.3 cm; Wt 66.0 kg
[2018-05-05] MEDS ORDERED: INSULIN ASPART 100 UNITS/ML 3 ML PEN SC ONE (00:30)
[2018-05-05] MEDS ORDERED: INSULIN GLARGINE SOLOSTAR 100 UNITS/ML 3 ML PEN SC ONE (00:30)
[2018-05-05] MEDS ORDERED: SODIUM CHLOR 0.45% + 20MEQ KCL 1,000 ML IV ONE ×2 (00:45→22:15)
[2018-05-05] MEDS: HEPARIN 25,000 UNIT/500ML D5W 500 ML IV SCH ×2 (01:21→21:15)
[2018-05-05] MEDS: LEVALBUTEROL 1.25MG/0.5ML NEB INH SCH ×4 (01:55→19:28)
[2018-05-05] MEDS: IPRATROPIUM BROMIDE NEB SOLN 0.02% 2.5 ML VIAL INH SCH ×4 (01:55→19:28)
--- NOTE | 2018-05-05 02:49 | HISTORY & PHYSICAL EXAMINATION ---
DATE OF ADMISSION: 05/04/2018 IM ATTENDING : Patient seen and examined. History obtained from family and records. Limited history from patient secondary to dementia. Preceding documentation by Ms. Valery Calvillo PA-C reviewed. FINAL ASSESSMENT AND PLAN as follows : 1. Acute hypoxemic respiratory failure multifactorial : acute pulmonary embolism, HCAP, possible aspiration pneumonia 2. severe sepsis SIRS plus lactic elevation plus respiratory failure plus renal failure possible sources : HCAP, possible aspiration urinary tract infection diarrhea ro cdif 2. Hx vascular dementia. 3. DM2 on oral meds, elevated blood sugars at the ER Unknown baseline control. 4. Hospice patient as per records PLAN: Patient's family requesting for medical management for now until they arrive to make final decision about comfort measures. (thru telephone conference) Supplemental O2 Cultures, Vancomycin, Zosyn stool C. diff., Flagyl for now until C. diff ruled out. May need oral Vancomycin if C. diff positive Follow lactic acid, IV fluids. Nebs, Solu-Medrol for bronchospasm Aspiration precautions IV heparin Basal insulin, ISS BG goal 140-180, check hemoglobin A1c DVT prophylaxis Heparin. DNR. Patient's son requesting of updates from providers, Ti Khang thru contact number [phone]. NIGEL
[2018-05-05] MEDS ORDERED: LEVALBUTEROL/IPRATROPIUM NEB INH SCH (03:00)
[2018-05-05] MEDS: SODIUM CHLOR 0.45% + 20MEQ KCL 1,000 ML IV SCH ×2 (03:14→07:50)
[2018-05-05 04:49] LABS: BASO % 0.1 %; BASO ABS # 0.02 K/uL (0-0.2); EOS % 0.1 %; EOS ABS # 0.01 K/uL (0-0.5); HEMATOCRIT 36.1 % (42-52); HEMOGLOBIN 11.3 g/dL (14.0-18.0); IG# 0.08 K/uL (0.00-0.02); LYMPH % 5.1 %; LYMPH ABS # 0.97 K/uL (1.2-3.4); MEAN CELL VOLUME 92.1 fL (80-100); MEAN CORPUSCULAR HEMOGLOBIN 28.8 pg (25-34); MEAN CORPUSCULAR HGB CONC 31.3 g/dl (32-36); MONO % 1.2 %; MONO ABS # 0.23 K/uL (0.11-0.59); NEUT % 93.1 %; NEUT ABS # 17.63 K/uL (1.4-6.5); PLATELET COUNT 237 K/uL (130-400); RED CELL DISTRIBUTION WIDTH CV 15.9 % (11.5-14.5); RED CELL DISTRIBUTION WIDTH SD 53.1 fL (36.4-46.3); WHITE BLOOD COUNT 18.94 K/uL (4.8-10.8)
[2018-05-05 04:56] LABS: PTT PATIENT 50.1 SECONDS (21.0-31.0)
[2018-05-05 05:00] LABS: CALCIUM 7.2 mg/dl (8.5-10.1); CREATININE 1.39 mg/dl (0.60-1.40); POTASSIUM 3.9 mmol/L (3.5-5.1)
[2018-05-05] MEDS ORDERED: SODIUM CHLOR 0.45% + 20MEQ KCL 1,000 ML IV SCH ×2 (05:00→14:30)
[2018-05-05] MEDS: PIPERACILL/TAZOBAC IV 3.375 GM in D5W 100ML IV SCH ×3 (05:19→20:21)
[2018-05-05] MEDS: INSULIN ASPART 100 UNITS/ML 3 ML PEN SC SCH ×3 (06:21→18:00)
[2018-05-05 06:57] LABS: HEMOGLOBIN A1C 7.5 % (4.5-5.6)
[2018-05-05] MEDS: METRONIDAZOLE / NSS 500 MG in PREMIXED NSS 100 ML IV SCH ×2 (08:30→16:11)
[2018-05-05] MEDS ORDERED: PIPERACILL/TAZOBAC CONSULT ACTIVE PRN (09:00)
[2018-05-05] MEDS: ASPIRIN 81 MG ECTAB PO SCH (09:00)
[2018-05-05] MEDS: RISPERIDONE 0.5 MG TAB PO SCH ×2 (09:00→22:08)
--- NOTE | 2018-05-05 09:05 | Pharmacy Progress Note ---
Pharmacy Antibiotic Consult Date of Service: May 05, 2018. Pharmacy Dosing Scope Pharmacy is consulted to initiate vancomycin and zosyn IV dosing therapy, order appropriate labs and adjust drug dose/frequency. Subjective The patient is a 87 year old male admitted on May 04, 2018 at 23:03. Objective Height (Feet): 5 Height (Inches): 11.00 Weight (Kilograms): 65.700 Lab Results (24hrs): Test 05/04/18 20:07 05/04/18 20:10 05/04/18 20:19 05/04/18 20:23 White Blood Count 26.25 K/uL (4.8-10.8) Red Blood Count 4.95 M/uL (4.7-6.1) Hemoglobin 14.7 g/dL (14.0-18.0) Hematocrit 45.2 % (42-52) Mean Corpuscular Volume 91.3 fL (80-100) Mean Corpuscular Hemoglobin 29.7 pg (25-34) Mean Corpuscular Hemoglobin Concent 32.5 g/dl (32-36) Platelet Count 311 K/uL (130-400) Mean Platelet Volume 10.6 fL (7.4-10.4) Neutrophils (%) (Auto) 91.1 % Lymphocytes (%) (Auto) 4.3 % Monocytes (%) (Auto) 3.7 % Eosinophils (%) (Auto) 0.1 % Basophils (%) (Auto) 0.2 % Neutrophils # (Auto) 23.90 K/uL (1.4-6.5) Lymphocytes # (Auto) 1.14 K/uL (1.2-3.4) Monocytes # (Auto) 0.98 K/uL (0.11-0.59) Eosinophils # (Auto) 0.02 K/uL (0-0.5) Basophils # (Auto) 0.04 K/uL (0-0.2) RDW Standard Deviation 51.6 fL (36.4-46.3) RDW Coefficient of Variation 15.7 % (11.5-14.5) Immature Granulocyte % (Auto) 0.6 % Immature Granulocyte # (Auto) 0.17 K/uL (0.00-0.02) Erythrocyte Sedimentation Rate 56 mm/hr (0-14) Prothrombin Time 12.8 SECONDS (9.0-12.0) Prothromb Time International Ratio 1.2 (0.9-1.1) Activated Partial Thromboplast Time 26.2 SECONDS (21.0-31.0) Partial Thromboplastin Ratio 1.0 Venous Blood pH 7.47 (7.36-7.41) Venous Blood Partial Pressure CO2 42 mmHg (38.0-50.0) Venous Blood Partial Pressure O2 41 mmHg Venous Blood HCO3 30 mmol/L Venous Blood Oxygen Saturation 76.1 % Venous Blood Base Excess 5.4 mEq/L Estimated Average Glucose 169 mg/dl Hemoglobin A1c 7.5 % (4.5-5.6) Magnesium Level 2.1 mg/dl (1.8-2.4) Total Bilirubin 2.7 mg/dl (0.2-1) Aspartate Amino Transf (AST/SGOT) 22 U/L (15-37) Alanine Aminotransferase (ALT/SGPT) 26 U/L (12-78) Alkaline Phosphatase 110 U/L (45-117) Total Creatine Kinase 84 U/L (39-308) Creatine Kinase MB 1.7 ng/ml (0.5-3.6) Creatine Kinase MB Ratio 2.0 (0-3.0) Troponin I 0.042 ng/ml (0-0.045) C-Reactive Protein 14.10 mg/dl (0-0.29) Pro-B-Type Natriuretic Peptide 619 pg/ml (0-1800) Total Protein 7.3 gm/dl (6.4-8.2) Albumin 2.6 gm/dl (3.4-5.0) Globulin 4.7 gm/dl (2.5-4.0) Albumin/Globulin Ratio 0.6 (0.9-2) Lipase 68 U/L (73-393) Valproic Acid (Depakene) Level 12 mcg/ml (50-100) Bedside Lactic Acid Venous 3.74 mmol/L (0.90-1.70) 4.12 mmol/L (0.90-1.70) Bedside Hemoglobin 15.3 g/dl (14.0-18.0) Bedside Hematocrit 45 % (42-52) Bedside Sodium 151 mEq/L (135-144) Bedside Potassium 3.9 mEq/L (3.3-5.0) Bedside Chloride 104 mEq/L (101-112) Bedside Total CO2 30 mEq/l (24-31) Bedside Blood Urea Nitrogen 32 mg/dl (7-18) Bedside Creatinine 1.7 mg/dl (0.6-1.3) Bedside Glucose (other) 251 mg/dl (70-99) Bedside Ionized Calcium (Nadya) 1.03 mmol/l (1.12-1.32) Test 05/04/18 20:35 05/04/18 22:30 05/05/18 04:14 05/05/18 05:32 Urine Color DK YELLOW Urine Appearance TURBID (CLEAR) Urine pH 5.0 (4.5-7.5) Urine Specific [place] 1.015 (1.000-1.030) Urine Protein TRACE (NEG) Urine Glucose (UA) NEG (NEG) Urine Ketones NEG (NEG) Urine Occult Blood 1+ (NEG) Urine Nitrite POS (NEG) Urine Bilirubin NEG (NEG) Urine Urobilinogen NEG (NEG) Urine Leukocyte Esterase LARGE (NEG) Urine WBC (Auto) >30 /hpf (0-5) Urine RBC (Auto) 5-10 /hpf (0-4) Urine Hyaline Casts (Auto) 10-30 /lpf (0-5) Urine Epithelial Cells (Auto) 10-20 /lpf (0-5) Urine Bacteria (Auto) 1+ (NEG) Urine Pathogenic Casts /lpf (0) Sodium Level 148 mmol/L (136-145) 148 mmol/L (136-145) Potassium Level 3.8 mmol/L (3.5-5.1) 3.9 mmol/L (3.5-5.1) Chloride Level 111 mmol/L (98-107) 114 mmol/L (98-107) Carbon Dioxide Level 29 mmol/L (21-32) 28 mmol/L (21-32) Anion Gap 8.0 mmol/L (3-11) 6.0 mmol/L (3-11) Blood Urea Nitrogen 30 mg/dl (7-18) 26 mg/dl (7-18) Creatinine 1.70 mg/dl (0.60-1.40) 1.39 mg/dl (0.60-1.40) Est Creatinine Clear Calc Drug Dose 27.8 ml/min 34.8 ml/min Estimated GFR () 41.1 52.4 Estimated GFR (Non- 35.5 45.2 BUN/Creatinine Ratio 17.6 (10-20) 18.6 (10-20) Random Glucose 222 mg/dl (70-99) 206 mg/dl (70-99) Lactic Acid Level 5.2 mmol/L (0.4-2.0) 2.3 mmol/L (0.4-2.0) Calcium Level 8.0 mg/dl (8.5-10.1) 7.2 mg/dl (8.5-10.1) Thyroid Stimulating Hormone (TSH) 0.988 uIu/ml (0.300-4.500) White Blood Count 18.94 K/uL (4.8-10.8) Red Blood Count 3.92 M/uL (4.7-6.1) Hemoglobin 11.3 g/dL (14.0-18.0) Hematocrit 36.1 % (42-52) Mean Corpuscular Volume 92.1 fL (80-100) Mean Corpuscular Hemoglobin 28.8 pg (25-34) Mean Corpuscular Hemoglobin Concent 31.3 g/dl (32-36) Platelet Count 237 K/uL (130-400) Mean Platelet Volume 11.0 fL (7.4-10.4) Neutrophils (%) (Auto) 93.1 % Lymphocytes (%) (Auto) 5.1 % Monocytes (%) (Auto) 1.2 % Eosinophils (%) (Auto) 0.1 % Basophils (%) (Auto) 0.1 % Neutrophils # (Auto) 17.63 K/uL (1.4-6.5) Lymphocytes # (Auto) 0.97 K/uL (1.2-3.4) Monocytes # (Auto) 0.23 K/uL (0.11-0.59) Eosinophils # (Auto) 0.01 K/uL (0-0.5) Basophils # (Auto) 0.02 K/uL (0-0.2) RDW Standard Deviation 53.1 fL (36.4-46.3) RDW Coefficient of Variation 15.9 % (11.5-14.5) Immature Granulocyte % (Auto) 0.4 % Immature Granulocyte # (Auto) 0.08 K/uL (0.00-0.02) Activated Partial Thromboplast Time 50.1 SECONDS (21.0-31.0) Partial Thromboplastin Ratio 1.9 Troponin I 0.059 ng/ml (0-0.045) Bedside Glucose 199 mg/dl (70-99) Test 05/05/18 07:30 Bedside Glucose 193 mg/dl (70-99) Micro Results: Item Value Date Time MRSA DNA Surveillance Screen - Final Complete 05/05/18 0017 Nasal Specimen Negative for MRSA by DNA Probe Urine Culture - Preliminary Resulted 05/04/182034 Urine,Catheterized Gram Negative Bacilli Blood Culture Received 05/04/182010 Blood Pending Blood Culture Received 05/04/182006 Blood Pending Assessment & Plan Patient started on vancomycin and zosyn for possible respiratory failure/HCAP, possible aspiration pneumonia, UTI - unclear source of infection. Blood cultures x 2 are pending. Nasal swab was negative for MRSA. Urine cx prelim showing gm negative bacilli. Vancomycin: * 1500 mg x 1 (~23 mg/kg) given last evening for loading dose * Will start vancomycin 1000 mg (~15 mg/kg) iv q 24 hrs to achieve an estimated trough ~15-30 mcg/ml (goal for pneumonia) * Unclear of baseline Scr, other visits show Scr closer to 1.1 mg/dl ; Scr elevated on admission however improving today * Will continue to follow cultures and order trough as necessary * Estimated kinetics: t1/2~20 hr, ke~0.03 hr-1, CrCl ~34 ml/min Zosyn: * 3.375 gm iv q 8 hrs - will continue same; dosing appropriate for CrCl >20 ml/ min Pharmacy will continue to follow and will adjust dose/frequency as necessary. Thank you
--- NOTE | 2018-05-05 11:31 | Progress Note ---
Medicine Progress Note Date & Time of Visit: May 05, 2018 at 10:39. Subjective Pt was seen and examined Lying in bed confused with daughter at bedside Daughter called the son in [place] and other daughter in [place] on a 3 way calls I had a long discussion with them Family found out pt was in the hospital when pt was getting ready to be admitted after he had work up done in the ER Family is interested for possible to go back to hospice at [facility] For now family want to keep treating him until the rest of the family arrives to see him Daughter said that pt has been declined significantly in the last few weeks He has not been eating lately and has been very weak Objective Last 8 Hrs Date Time Temp Pulse Resp B/P (MAP) Pulse Ox O2 Delivery O2 Flow Rate FiO2 05/05/18 08:01 36.3 66 22 101/51 (68) 98 Mask 3.0 05/05/18 06:57 66 18 97 Mask 5.0 05/05/18 04:00 Nasal Cannula 4.0 05/05/18 04:00 36.6 66 15 91/50 (64) 99 Mask 4.0 Physical Exam: General- Acute distress, confuse Head- atraumatic Eyes- PERRL, EOMI ENT- oropharynx clear Neck- supple, no JVD Lungs-Decrease breath sound Heart- irregular rhythm Abdomen- normal bowel sounds, soft, nontende Extremities-no calf tenderness Neuro-Confused Skin- warm & dry Laboratory Results: Last 24 Hours Test 05/04/18 20:07 05/04/18 20:10 05/04/18 20:19 05/04/18 20:23 White Blood Count 26.25 K/uL Red Blood Count 4.95 M/uL Hemoglobin 14.7 g/dL Hematocrit 45.2 % Mean Corpuscular Volume 91.3 fL Mean Corpuscular Hemoglobin 29.7 pg Mean Corpuscular Hemoglobin Concent 32.5 g/dl Platelet Count 311 K/uL Mean Platelet Volume 10.6 fL Neutrophils (%) (Auto) 91.1 % Lymphocytes (%) (Auto) 4.3 % Monocytes (%) (Auto) 3.7 % Eosinophils (%) (Auto) 0.1 % Basophils (%) (Auto) 0.2 % Neutrophils # (Auto) 23.90 K/uL Lymphocytes # (Auto) 1.14 K/uL Monocytes # (Auto) 0.98 K/uL Eosinophils # (Auto) 0.02 K/uL Basophils # (Auto) 0.04 K/uL RDW Standard Deviation 51.6 fL RDW Coefficient of Variation 15.7 % Immature Granulocyte % (Auto) 0.6 % Immature Granulocyte # (Auto) 0.17 K/uL Erythrocyte Sedimentation Rate 56 mm/hr Prothrombin Time 12.8 SECONDS Prothromb Time International Ratio 1.2 Activated Partial Thromboplast Time 26.2 SECONDS Partial Thromboplastin Ratio 1.0 Venous Blood pH 7.47 Venous Blood Partial Pressure CO2 42 mmHg Venous Blood Partial Pressure O2 41 mmHg Venous Blood HCO3 30 mmol/L Venous Blood Oxygen Saturation 76.1 % Venous Blood Base Excess 5.4 mEq/L Sodium Level 147 mmol/L Potassium Level 3.9 mmol/L Chloride Level 108 mmol/L Carbon Dioxide Level 30 mmol/L Anion Gap 9.0 mmol/L 21.0 mmol/L Blood Urea Nitrogen 33 mg/dl Creatinine 1.91 mg/dl Est Creatinine Clear Calc Drug Dose 24.7 ml/min Estimated GFR () 35.7 Estimated GFR (Non- 30.8 BUN/Creatinine Ratio 17.1 Random Glucose 239 mg/dl Estimated Average Glucose 169 mg/dl Hemoglobin A1c 7.5 % Lactic Acid Level 4.1 mmol/L Calcium Level 8.6 mg/dl Magnesium Level 2.1 mg/dl Total Bilirubin 2.7 mg/dl Aspartate Amino Transf (AST/SGOT) 22 U/L Alanine Aminotransferase (ALT/SGPT) 26 U/L Alkaline Phosphatase 110 U/L Total Creatine Kinase 84 U/L Creatine Kinase MB 1.7 ng/ml Creatine Kinase MB Ratio 2.0 Troponin I 0.042 ng/ml C-Reactive Protein 14.10 mg/dl Pro-B-Type Natriuretic Peptide 619 pg/ml Total Protein 7.3 gm/dl Albumin 2.6 gm/dl Globulin 4.7 gm/dl Albumin/Globulin Ratio 0.6 Lipase 68 U/L Valproic Acid (Depakene) Level 12 mcg/ml Bedside Lactic Acid Venous 3.74 mmol/L 4.12 mmol/L Bedside Hemoglobin 15.3 g/dl Bedside Hematocrit 45 % Bedside Sodium 151 mEq/L Bedside Potassium 3.9 mEq/L Bedside Chloride 104 mEq/L Bedside Total CO2 30 mEq/l Bedside Blood Urea Nitrogen 32 mg/dl Bedside Creatinine 1.7 mg/dl Bedside Glucose (other) 251 mg/dl Bedside Ionized Calcium (Nadya) 1.03 mmol/l Test 05/04/18 20:35 05/04/18 22:30 05/05/18 01:11 05/05/18 04:14 Urine Color DK YELLOW Urine Appearance TURBID Urine pH 5.0 Urine Specific [place] 1.015 Urine Protein TRACE Urine Glucose (UA) NEG Urine Ketones NEG Urine Occult Blood 1+ Urine Nitrite POS Urine Bilirubin NEG Urine Urobilinogen NEG Urine Leukocyte Esterase LARGE Urine WBC (Auto) >30 /hpf Urine RBC (Auto) 5-10 /hpf Urine Hyaline Casts (Auto) 10-30 /lpf Urine Epithelial Cells (Auto) 10-20 /lpf Urine Bacteria (Auto) 1+ Urine Pathogenic Casts /lpf Sodium Level 148 mmol/L 148 mmol/L Potassium Level 3.8 mmol/L 3.9 mmol/L Chloride Level 111 mmol/L 114 mmol/L Carbon Dioxide Level 29 mmol/L 28 mmol/L Anion Gap 8.0 mmol/L 6.0 mmol/L Blood Urea Nitrogen 30 mg/dl 26 mg/dl Creatinine 1.70 mg/dl 1.39 mg/dl Est Creatinine Clear Calc Drug Dose 27.8 ml/min 34.8 ml/min Estimated GFR () 41.1 52.4 Estimated GFR (Non- 35.5 45.2 BUN/Creatinine Ratio 17.6 18.6 Random Glucose 222 mg/dl 206 mg/dl Lactic Acid Level 5.2 mmol/L 2.3 mmol/L Calcium Level 8.0 mg/dl 7.2 mg/dl Thyroid Stimulating Hormone (TSH) 0.988 uIu/ml Bedside Glucose 245 mg/dl White Blood Count 18.94 K/uL Red Blood Count 3.92 M/uL Hemoglobin 11.3 g/dL Hematocrit 36.1 % Mean Corpuscular Volume 92.1 fL Mean Corpuscular Hemoglobin 28.8 pg Mean Corpuscular Hemoglobin Concent 31.3 g/dl Platelet Count 237 K/uL Mean Platelet Volume 11.0 fL Neutrophils (%) (Auto) 93.1 % Lymphocytes (%) (Auto) 5.1 % Monocytes (%) (Auto) 1.2 % Eosinophils (%) (Auto) 0.1 % Basophils (%) (Auto) 0.1 % Neutrophils # (Auto) 17.63 K/uL Lymphocytes # (Auto) 0.97 K/uL Monocytes # (Auto) 0.23 K/uL Eosinophils # (Auto) 0.01 K/uL Basophils # (Auto) 0.02 K/uL RDW Standard Deviation 53.1 fL RDW Coefficient of Variation 15.9 % Immature Granulocyte % (Auto) 0.4 % Immature Granulocyte # (Auto) 0.08 K/uL Activated Partial Thromboplast Time 50.1 SECONDS Partial Thromboplastin Ratio 1.9 Troponin I 0.059 ng/ml Test 05/05/18 05:32 05/05/18 07:30 05/05/18 09:58 Bedside Glucose 199 mg/dl 193 mg/dl Lactic Acid Level 1.1 mmol/L Troponin I 0.037 ng/ml Date/Time Source Procedure Growth Status 05/04/18 20:11 Blood Blood Culture Pending Received 05/04/18 20:07 Blood Blood Culture Pending Received 05/05/18 00:17 Nasal MRSA DNA Surveillance Screen - Final Specimen Negative for MRSA by DNA Probe Complete 05/04/18 20:35 Urine,Catheterized Urine Culture - Preliminary Gram Negative Bacilli Resulted Assessment & Plan Acute hypoxemic respiratory failure Pulmonary embolism Pneumonia CTA showed several small segmental pulmonary emboli within the right upper lobe. Extensive bilateral airspace opacities, greatest within the lower lobes. Continue heparin drip for now while in the hospital family decided that to transfer back to [facility] with Hospice tomorrow when son arrives No coumadin as per family or other anticoagulants agents Continue oxygen supplement Continue abx with Zosyn now until discharge to [facility] for hospice Continue oxygen supplement Severe sepsis UTI/Pneumonia/colitis Urine cx positive for gram negative bacilli Elevated lactic acid WBC on admission 26K , now 18K Continue Zosyn IV for now Continue monitor CBC and lactic acid Colitis has been having diarrhea Stool for Cdiff was negative on 04/17 CT abd/Pelvis showed mild wall thickening of the descending colon No diarrhea today Continue Flagyl for now Hx vascular dementia. Has been confused DM type 2 Hba1c 7.5 Oral Diabetes med on hold Continue monitor BS DVT px on heparin drip CODE STATUS DNR Disposition Discharge to [facility] with Hospice tomorrow Palliative care consult Current Inpatient Medications: Current Inpatient Medications Medications (Trade) Dose Ordered Sig/Steve Route Start Time Stop Time Status Last Admin Dose Admin Ioversol (Optiray 320) 111 ml UD PRN IV 05/04/18 20:45 05/08/18 20:44 Vancomycin HCl (Consult) 1 ea UD PRN N/A 05/04/18 23:15 06/03/18 23:14 Heparin Sodium/ Dextrose 500 ml @ 23 mls/hr [id number] IV 05/04/18 23:45 06/03/18 23:44 Acetaminophen (Tylenol Tab) 650 mg Q4H PRN PO 05/04/18 23:45 06/03/18 23:44 Nitroglycerin (Nitrostat Tab) 0.4 mg UD PRN SL 05/04/18 23:45 06/03/18 23:44 Insulin Aspart (novoLOG ASPART) SLIDING SCALE If C... Q6 SC 05/05/18 06:00 06/04/18 05:59 05/05/18 06:21 1 UNITS Glucose (Glucose 40% Gel) 15-30 GRAMS 15 GRAMS... UD PRN PO 05/04/18 23:45 06/03/18 23:44 Glucose (Glucose Chew Tab) 4-8 Tablets 4 Tabl... UD PRN PO 05/04/18 23:45 06/03/18 23:44 Dextrose (Dextrose 50% 50ML Syringe) 25-50ML 25ML FOR ... UD PRN IV 05/04/18 23:45 06/03/18 23:44 Glucagon (Glucagon Inj) 1 mg UD PRN SQ 05/04/18 23:45 06/03/18 23:44 Carbohydrates (Carbohydrates For Hypoglycemia) 15-30 GRAMS 15 grams if BSG 54-69... UD PRN PO 05/04/18 23:45 06/03/18 23:44 Miscellaneous Information (Consult) 1 ea UD PRN N/A 05/05/18 09:00 06/04/18 08:59 Insulin Glargine (Lantus Solostar Pen) 10 units HS SC 05/05/18 21:00 06/04/18 20:59 Prochlorperazine Edisylate 5 mg/ Syringe 5 ml @ 5 mls/min Q6H PRN IV 05/04/18 23:45 06/03/18 23:44 Hydromorphone HCl (Dilaudid Inj) 0.25 mg Q3H PRN IV 05/04/18 23:45 05/18/18 23:44 Oxycodone/ Acetaminophen (Percocet 5-325mg Tab) 1 tab Q6H PRN PO 05/04/18 23:45 05/18/18 23:44 Aspirin (Ecotrin Tab) 81 mg DAILY PO 05/05/18 09:00 06/04/18 08:59 Divalproex Sodium (Depakote Delay Rel Tab) 125 mg HS PO 05/05/18 21:00 06/04/18 20:59 Risperidone (Risperdal Tab) 0.5 mg BID PO 05/05/18 09:00 06/04/18 08:59 Simvastatin (Zocor Tab) 40 mg QPM PO 05/05/18 21:00 06/04/18 20:59 Metronidazole 500 mg/Prmx 100 ml @ 100 mls/hr Q8H IV 05/05/18 08:00 05/15/18 07:59 05/05/18 08:30 100 MLS/HR Ipratropium [place] (Atrovent 0.02% 0.5MG/2.5ML Neb) 0.5 mg Q6R INH 05/05/18 03:00 06/04/18 02:59 05/05/18 06:57 0.5 MG Levalbuterol (Xopenex 1.25MG/ 0.5ML Neb) 1.25 mg Q6R INH 05/05/18 03:00 06/04/18 02:59 05/05/18 06:57 1.25 MG Potassium Chloride/Sodium Chloride 1,000 ml @ 200 mls/hr Q5H IV 05/05/18 02:30 05/05/18 10:59 05/05/18 07:50 200 MLS/HR Piperacillin Sod/ Tazobactam Sod 3.375 gm/Dextrose 115 ml @ 28.75 mls/ hr Q8H IV 05/05/18 04:00 05/12/18 03:59 05/05/18 05:19 28.75 MLS/HR Vancomycin HCl 1000 mg/Sodium Chloride 270 ml @ 125 mls/hr Q24H IV 05/05/18 22:00 05/12/18 21:59
[2018-05-05] MEDS ORDERED: NURSING VERBAL MED ORDER ONE ×2 (13:45→22:45)
[2018-05-05] MEDS: SIMVASTATIN 40 MG TAB PO SCH (21:00)
[2018-05-05] MEDS ORDERED: DIVALPROEX DELAY REL TAB 125 MG TABEC PO SCH (21:00)
[2018-05-05] MEDS: DIVALPROEX SODIUM SPRINKLE 125 MG CAP PO SCH (22:08)
[2018-05-05] MEDS: INSULIN GLARGINE SOLOSTAR 100 UNITS/ML 3 ML PEN SC SCH (22:09)
[2018-05-05] MEDS: VANCOMYCIN IV 1,000 MG in SODIUM CHLORIDE 0.9% 250ML 250 ML IV SCH (22:24)
[2018-05-06] VITALS (9 sets, daily range): BP systolic 106–134; BP diastolic 50–66; PULSE 65–120; TEMP 36.3–37; O2SAT 90–98
[2018-05-06] MEDS: IPRATROPIUM BROMIDE NEB SOLN 0.02% 2.5 ML VIAL INH SCH ×4 (01:47→19:23)
[2018-05-06] MEDS: LEVALBUTEROL 1.25MG/0.5ML NEB INH SCH ×4 (01:47→19:23)
[2018-05-06 03:47] LABS: BASO % 0.2 %; BASO ABS # 0.03 K/uL (0-0.2); EOS % 1.6 %; HEMATOCRIT 36.3 % (42-52); HEMOGLOBIN 11.5 g/dL (14.0-18.0); IG# 0.03 K/uL (0.00-0.02); LYMPH % 16.1 %; MEAN CELL VOLUME 91.9 fL (80-100); MEAN CORPUSCULAR HEMOGLOBIN 29.1 pg (25-34); MEAN CORPUSCULAR HGB CONC 31.7 g/dl (32-36); MEAN PLATELET VOLUME 10.5 fL (7.4-10.4); MONO % 4.8 %; NEUT % 77.1 %; NEUT ABS # 9.58 K/uL (1.4-6.5); PLATELET COUNT 210 K/uL (130-400); RED CELL DISTRIBUTION WIDTH CV 15.7 % (11.5-14.5); RED CELL DISTRIBUTION WIDTH SD 52.7 fL (36.4-46.3); WHITE BLOOD COUNT 12.44 K/uL (4.8-10.8)
[2018-05-06 04:09] LABS: CALCIUM 7.4 mg/dl (8.5-10.1); CREATININE 1.07 mg/dl (0.60-1.40); POTASSIUM 3.5 mmol/L (3.5-5.1)
[2018-05-06] MEDS: PIPERACILL/TAZOBAC IV 3.375 GM in D5W 100ML IV SCH ×3 (04:12→21:14)
[2018-05-06 05:56] LABS: PTT PATIENT 49.6 SECONDS (21.0-31.0)
[2018-05-06] MEDS: INSULIN ASPART 100 UNITS/ML 3 ML PEN SC SCH ×4 (06:00→18:00)
[2018-05-06] MEDS: RISPERIDONE 0.5 MG TAB PO SCH ×2 (08:56→21:14)
[2018-05-06] MEDS: ASPIRIN 81 MG ECTAB PO SCH (08:56)
--- NOTE | 2018-05-06 18:12 | Progress Note ---
Medicine Progress Note Date & Time of Visit: May 06, 2018 at 17:59. Subjective Pt was seen and examined Lying in bed with both daughters at bedside He slightly improved compare to yesterday His more alert today and was able to speak clearly and answered questions Did not eat much today family would like him to transition back to [facility] for hospice family would like to speak to palliative care team Waiting for the son (POA) to decide if they want to continue with IV abx and anticoagulant Objective Last 8 Hrs Date Time Temp Pulse Resp B/P (MAP) Pulse Ox O2 Delivery O2 Flow Rate FiO2 05/06/18 15:04 36.5 120 20 115/66 (82) 91 Nasal Cannula 3.0 05/06/18 14:38 66 16 90 Nasal Cannula 3.0 05/06/18 11:29 36.3 81 20 118/50 (72) 96 Nasal Cannula 3.0 Physical Exam: General- Acute distress, confuse Head- atraumatic Eyes- PERRL, EOMI ENT- oropharynx clear Neck- supple, no JVD Lungs-crackles Heart- irregular rhythm Abdomen- normal bowel sounds, soft, nontender Extremities-no calf tenderness Neuro-Confused Skin- warm & dry Laboratory Results: Last 24 Hours Test 05/05/18 18:10 05/05/18 23:58 05/06/18 03:33 05/06/18 03:46 Bedside Glucose 167 mg/dl 159 mg/dl 144 mg/dl White Blood Count 12.44 K/uL Red Blood Count 3.95 M/uL Hemoglobin 11.5 g/dL Hematocrit 36.3 % Mean Corpuscular Volume 91.9 fL Mean Corpuscular Hemoglobin 29.1 pg Mean Corpuscular Hemoglobin Concent 31.7 g/dl Platelet Count 210 K/uL Mean Platelet Volume 10.5 fL Neutrophils (%) (Auto) 77.1 % Lymphocytes (%) (Auto) 16.1 % Monocytes (%) (Auto) 4.8 % Eosinophils (%) (Auto) 1.6 % Basophils (%) (Auto) 0.2 % Neutrophils # (Auto) 9.58 K/uL Lymphocytes # (Auto) 2.00 K/uL Monocytes # (Auto) 0.60 K/uL Eosinophils # (Auto) 0.20 K/uL Basophils # (Auto) 0.03 K/uL RDW Standard Deviation 52.7 fL RDW Coefficient of Variation 15.7 % Immature Granulocyte % (Auto) 0.2 % Immature Granulocyte # (Auto) 0.03 K/uL Sodium Level 146 mmol/L Potassium Level 3.5 mmol/L Chloride Level 112 mmol/L Carbon Dioxide Level 26 mmol/L Anion Gap 8.0 mmol/L Blood Urea Nitrogen 17 mg/dl Creatinine 1.07 mg/dl Est Creatinine Clear Calc Drug Dose 45.2 ml/min Estimated GFR () 72.0 Estimated GFR (Non- 62.1 BUN/Creatinine Ratio 16.1 Random Glucose 151 mg/dl Calcium Level 7.4 mg/dl Test 05/06/18 05:02 05/06/18 06:06 05/06/18 07:42 05/06/18 11:28 Activated Partial Thromboplast Time 49.6 SECONDS Partial Thromboplastin Ratio 1.9 Bedside Glucose 142 mg/dl 137 mg/dl 133 mg/dl Assessment & Plan Acute hypoxemic respiratory failure Pulmonary embolism Pneumonia CTA showed several small segmental pulmonary emboli within the right upper lobe. Extensive bilateral airspace opacities, greatest within the lower lobes. Continue heparin drip for now while in the hospital family decided to transfer back to [facility] with Hospice tomorrow when son arrives No coumadin as per family or other anticoagulants agents to be continue on discharge Continue oxygen supplement Continue abx with Zosyn now until discharge to [facility] for hospice Will D/C vanco in am Continue oxygen supplement Consider to give very low dose lasix if SOB worsening once BP improves (Crackle noted on exam) Severe sepsis UTI/Pneumonia/colitis Urine cx positive for gram negative bacilli Elevated lactic acid trending down WBC on admission 26K , now trending to 12K Blood cx no growth Urine cx positive for Klebsiella PNA Continue Zosyn IV Will D/C Vanco IV after tonight dose Continue monitor CBC Colitis Has been having diarrhea Stool for Cdiff was negative on 04/17 CT abd/Pelvis showed mild wall thickening of the descending colon No diarrhea today Flagyl D/C Hx vascular dementia. Has been confused DM type 2 Hba1c 7.5 Oral Diabetes med on hold Continue monitor BS DVT px on heparin drip CODE STATUS DNR Disposition Discharge to [facility] with Hospice tomorrow Palliative care consult Current Inpatient Medications: Current Inpatient Medications Medications (Trade) Dose Ordered Sig/Steve Route Start Time Stop Time Status Last Admin Dose Admin Ioversol (Optiray 320) 111 ml UD PRN IV 05/04/18 20:45 05/08/18 20:44 Vancomycin HCl (Consult) 1 ea UD PRN N/A 05/04/18 23:15 06/03/18 23:14 Heparin Sodium/ Dextrose 500 ml @ 23 mls/hr [id number] IV 05/04/18 23:45 06/03/18 23:44 05/05/18 21:15 23 MLS/HR Acetaminophen (Tylenol Tab) 650 mg Q4H PRN PO 05/04/18 23:45 06/03/18 23:44 Nitroglycerin (Nitrostat Tab) 0.4 mg UD PRN SL 05/04/18 23:45 06/03/18 23:44 Insulin Aspart (novoLOG ASPART) SLIDING SCALE If C... Q6 SC 05/05/18 06:00 06/04/18 05:59 05/05/18 06:21 1 UNITS Glucose (Glucose 40% Gel) 15-30 GRAMS 15 GRAMS... UD PRN PO 05/04/18 23:45 06/03/18 23:44 Glucose (Glucose Chew Tab) 4-8 Tablets 4 Tabl... UD PRN PO 05/04/18 23:45 06/03/18 23:44 Dextrose (Dextrose 50% 50ML Syringe) 25-50ML 25ML FOR ... UD PRN IV 05/04/18 23:45 06/03/18 23:44 Glucagon (Glucagon Inj) 1 mg UD PRN SQ 05/04/18 23:45 06/03/18 23:44 Carbohydrates (Carbohydrates For Hypoglycemia) 15-30 GRAMS 15 grams if BSG 54-69... UD PRN PO 05/04/18 23:45 06/03/18 23:44 Miscellaneous Information (Consult) 1 ea UD PRN N/A 05/05/18 09:00 06/04/18 08:59 Insulin Glargine (Lantus Solostar Pen) 10 units HS SC 05/05/18 21:00 06/04/18 20:59 05/05/18 22:09 10 UNITS Prochlorperazine Edisylate 5 mg/ Syringe 5 ml @ 5 mls/min Q6H PRN IV 05/04/18 23:45 06/03/18 23:44 Hydromorphone HCl (Dilaudid Inj) 0.25 mg Q3H PRN IV 05/04/18 23:45 05/18/18 23:44 Oxycodone/ Acetaminophen (Percocet 5-325mg Tab) 1 tab Q6H PRN PO 05/04/18 23:45 05/18/18 23:44 Aspirin (Ecotrin Tab) 81 mg DAILY PO 05/05/18 09:00 06/04/18 08:59 Risperidone (Risperdal Tab) 0.5 mg BID PO 05/05/18 09:00 06/04/18 08:59 05/05/18 22:08 0.5 MG Simvastatin (Zocor Tab) 40 mg QPM PO 05/05/18 21:00 06/04/18 20:59 Ipratropium [place] (Atrovent 0.02% 0.5MG/2.5ML Neb) 0.5 mg Q6R INH 05/05/18 03:00 06/04/18 02:59 05/06/18 14:37 0.5 MG Levalbuterol (Xopenex 1.25MG/ 0.5ML Neb) 1.25 mg Q6R INH 05/05/18 03:00 06/04/18 02:59 05/06/18 14:37 1.25 MG Piperacillin Sod/ Tazobactam Sod 3.375 gm/Dextrose 115 ml @ 28.75 mls/ hr Q8H IV 05/05/18 04:00 05/12/18 03:59 05/06/18 13:33 28.75 MLS/HR Vancomycin HCl 1000 mg/Sodium Chloride 270 ml @ 125 mls/hr Q24H IV 05/05/18 22:00 05/12/18 21:59 05/05/18 22:24 125 MLS/HR Divalproex Sodium (Depakote Sprinkle Cap) 125 mg HS PO 05/05/18 21:00 06/04/18 20:59 05/05/18 22:08 125 MG
[2018-05-06] MEDS: HEPARIN 25,000 UNIT/500ML D5W 500 ML IV SCH (20:19)
[2018-05-06] MEDS: INSULIN GLARGINE SOLOSTAR 100 UNITS/ML 3 ML PEN SC SCH (21:00)
[2018-05-06] MEDS: SIMVASTATIN 40 MG TAB PO SCH (21:00)
[2018-05-06] MEDS: DIVALPROEX SODIUM SPRINKLE 125 MG CAP PO SCH (21:14)
[2018-05-06] MEDS: VANCOMYCIN IV 1,000 MG in SODIUM CHLORIDE 0.9% 250ML 250 ML IV SCH (21:57)
[2018-05-07] VITALS (8 sets, daily range): BP systolic 104–147; BP diastolic 56–77; PULSE 69–120; TEMP 36.4–36.8; O2SAT 90–95
[2018-05-07] MEDS ORDERED: SODIUM CHLOR 0.45% + 20MEQ KCL 1,000 ML IV ONE ×2 (01:30)
[2018-05-07] MEDS: PIPERACILL/TAZOBAC IV 3.375 GM in D5W 100ML IV SCH ×2 (04:00→13:17)
[2018-05-07] MEDS: INSULIN ASPART 100 UNITS/ML 3 ML PEN SC SCH ×3 (06:00→12:00)
[2018-05-07] MEDS: IPRATROPIUM BROMIDE NEB SOLN 0.02% 2.5 ML VIAL INH SCH (07:01)
[2018-05-07] MEDS: LEVALBUTEROL 1.25MG/0.5ML NEB INH SCH (07:01)
[2018-05-07 07:02] LABS: BASO % 0.2 %; BASO ABS # 0.02 K/uL (0-0.2); EOS ABS # 0.21 K/uL (0-0.5); HEMATOCRIT 35.1 % (42-52); HEMOGLOBIN 11.3 g/dL (14.0-18.0); IG# 0.03 K/uL (0.00-0.02); LYMPH ABS # 1.37 K/uL (1.2-3.4); MEAN CELL VOLUME 89.5 fL (80-100); MEAN CORPUSCULAR HEMOGLOBIN 28.8 pg (25-34); MEAN CORPUSCULAR HGB CONC 32.2 g/dl (32-36); MEAN PLATELET VOLUME 10.8 fL (7.4-10.4); MONO % 7.1 %; MONO ABS # 0.75 K/uL (0.11-0.59); NEUT % 77.4 %; NEUT ABS # 8.18 K/uL (1.4-6.5); PLATELET COUNT 242 K/uL (130-400); RED CELL DISTRIBUTION WIDTH CV 15.8 % (11.5-14.5); RED CELL DISTRIBUTION WIDTH SD 50.8 fL (36.4-46.3); WHITE BLOOD COUNT 10.56 K/uL (4.8-10.8)
[2018-05-07 07:41] LABS: CALCIUM 7.6 mg/dl (8.5-10.1); CREATININE 0.85 mg/dl (0.60-1.40); POTASSIUM 3.4 mmol/L (3.5-5.1)
[2018-05-07] MEDS: HEPARIN 25,000 UNIT/500ML D5W 500 ML IV SCH (08:32)
[2018-05-07] MEDS: ASPIRIN 81 MG ECTAB PO SCH (08:34)
[2018-05-07] MEDS: RISPERIDONE 0.5 MG TAB PO SCH (08:34)
[2018-05-07] MEDS: POTASSIUM CHLR 10 MEQ / WTR 100 ML IV SCH ×2 (08:35→09:50)
[2018-05-07] MEDS ORDERED: HEPARIN IV BOLUS 3,000 UNIT in SYRINGE 0 ML IV ONE (09:00)
--- NOTE | 2018-05-07 13:10 | Palliative Care Consultation ---
Consultation Date of Consultation: May 07, 2018. Requesting Physician: Dr. Candelaria Attending Physician: Dr. Candelaria Reason for Consultation: Goals of care History of Present Illness This 87 year old male patient from [facility] on hospice presented to the hospital a few days ago with altered mental status and lethargy following a "choking" episode at dinner time. Palliative care is consulted to discuss goals of care and disposition with patient and family. Patient admitted and treated for pneumonia and PE, on abx and heparin gtt. Family was uncertain about sending patient back to hospital since he was on hospice, but they are all from out of town and wanted to buy some time to get here and discuss goals. Now that patient is in hospital, he is a little improved as far as not quite as lethargic. He remains weak, moist respirations and secretions in throat. He is unable to ambulate, unable to make any medical decisions as he is quite confused. Pleasantly disoriented. Patient's son and daughter spoke with me at length. Ultimately, the decision has been made for patient to return to [facility] with [facility] and not return to hospital. POLST form competed, Dr. Candelaria updated. Past Medical/Surgical History Medical History: (1) Alzheimer's dementia Status: Chronic (2) Atrial fibrillation Status: Chronic (3) CAD (coronary artery disease) Status: Chronic (4) DM type 2 (diabetes mellitus, type 2) Status: Chronic (5) Gastroparesis Status: Chronic (6) GERD (gastroesophageal reflux disease) Status: Chronic (7) HTN (hypertension) Status: Chronic (8) Hyperlipidemia Status: Chronic (9) Insomnia Status: Chronic SURGICAL HISTORY unable to obtain at this time secondary to pt's mental status Social History Smoking Status: Unknown if Ever Smoked Review of Systems Constitutional: + weakness ENT: No trouble swallowing Respiratory: No cough, No shortness of breath Cardiac: No chest pain, No edema Abdomen: No pain, No nausea, No vomiting Male : No problem reported Psychiatric: No depression symptoms, No anxiety Allergies Coded Allergies: Cat Dander (Verified Allergy, Unknown, UNKNOWN, 05/04/18) Shellfish (Verified Allergy, Unknown, UNKNOWN, 05/04/18) Medications Current Inpatient Medications Medications (Trade) Dose Ordered Sig/Steve Route Start Time Stop Time Status Last Admin Dose Admin Ioversol (Optiray 320) 111 ml UD PRN IV 05/04/18 20:45 05/08/18 20:44 Vancomycin HCl (Consult) 1 ea UD PRN N/A 05/04/18 23:15 06/03/18 23:14 Heparin Sodium/ Dextrose 500 ml @ 26 mls/hr [id number] IV 05/04/18 23:45 06/03/18 23:44 05/07/18 08:32 23 MLS/HR Acetaminophen (Tylenol Tab) 650 mg Q4H PRN PO 05/04/18 23:45 06/03/18 23:44 Nitroglycerin (Nitrostat Tab) 0.4 mg UD PRN SL 05/04/18 23:45 06/03/18 23:44 Insulin Aspart (novoLOG ASPART) SLIDING SCALE If C... Q6 SC 05/05/18 06:00 06/04/18 05:59 05/05/18 06:21 1 UNITS Glucose (Glucose 40% Gel) 15-30 GRAMS 15 GRAMS... UD PRN PO 05/04/18 23:45 06/03/18 23:44 Glucose (Glucose Chew Tab) 4-8 Tablets 4 Tabl... UD PRN PO 05/04/18 23:45 06/03/18 23:44 Dextrose (Dextrose 50% 50ML Syringe) 25-50ML 25ML FOR ... UD PRN IV 05/04/18 23:45 06/03/18 23:44 Glucagon (Glucagon Inj) 1 mg UD PRN SQ 05/04/18 23:45 06/03/18 23:44 Carbohydrates (Carbohydrates For Hypoglycemia) 15-30 GRAMS 15 grams if BSG 54-69... UD PRN PO 05/04/18 23:45 06/03/18 23:44 Miscellaneous Information (Consult) 1 ea UD PRN N/A 05/05/18 09:00 06/04/18 08:59 Insulin Glargine (Lantus Solostar Pen) 10 units HS SC 05/05/18 21:00 06/04/18 20:59 05/05/18 22:09 10 UNITS Prochlorperazine Edisylate 5 mg/ Syringe 5 ml @ 5 mls/min Q6H PRN IV 05/04/18 23:45 06/03/18 23:44 Hydromorphone HCl (Dilaudid Inj) 0.25 mg Q3H PRN IV 05/04/18 23:45 05/18/18 23:44 Oxycodone/ Acetaminophen (Percocet 5-325mg Tab) 1 tab Q6H PRN PO 05/04/18 23:45 05/18/18 23:44 Aspirin (Ecotrin Tab) 81 mg DAILY PO 05/05/18 09:00 06/04/18 08:59 Risperidone (Risperdal Tab) 0.5 mg BID PO 05/05/18 09:00 06/04/18 08:59 05/06/18 21:14 0.5 MG Simvastatin (Zocor Tab) 40 mg QPM PO 05/05/18 21:00 06/04/18 20:59 Ipratropium [place] (Atrovent 0.02% 0.5MG/2.5ML Neb) 0.5 mg Q6R INH 05/05/18 03:00 06/04/18 02:59 05/07/18 07:01 0.5 MG Levalbuterol (Xopenex 1.25MG/ 0.5ML Neb) 1.25 mg Q6R INH 05/05/18 03:00 06/04/18 02:59 05/07/18 07:01 1.25 MG Piperacillin Sod/ Tazobactam Sod 3.375 gm/Dextrose 115 ml @ 28.75 mls/ hr Q8H IV 05/05/18 04:00 05/12/18 03:59 05/07/18 04:00 28.75 MLS/HR Vancomycin HCl 1000 mg/Sodium Chloride 270 ml @ 125 mls/hr Q24H IV 05/05/18 22:00 05/12/18 21:59 05/06/18 21:57 125 MLS/HR Divalproex Sodium (Depakote Sprinkle Cap) 125 mg HS PO 05/05/18 21:00 06/04/18 20:59 05/06/18 21:14 125 MG Potassium Chloride/Sodium Chloride 1,000 ml @ 80 mls/hr [id number] ONCE IV 05/07/18 01:30 05/07/18 13:59 05/07/18 02:09 80 MLS/HR Physical Exam Date Time Temp Pulse Resp B/P (MAP) Pulse Ox O2 Delivery O2 Flow Rate FiO2 05/07/18 12:39 36.6 69 20 124/67 (86) 95 Nasal Cannula 3.0 05/07/18 08:45 Nasal Cannula 3.0 05/07/18 08:22 36.7 118 22 120/70 (87) 92 Nasal Cannula 3.0 05/07/18 07:01 118 16 91 Nasal Cannula 3.0 05/07/18 06:53 36.5 98 20 147/77 (100) 95 Room Air 05/07/18 03:45 36.4 71 22 104/56 (72) 91 Nasal Cannula 3.0 05/07/18 02:22 76 16 90 Nasal Cannula 3.0 05/07/18 00:19 36.8 120 20 120/73 (89) 92 Nasal Cannula 2.0 05/06/18 20:00 Nasal Cannula 2.0 05/06/18 19:52 37.0 118 20 134/64 (87) 93 Nasal Cannula 3.0 05/06/18 19:23 71 16 91 Nasal Cannula 3.0 05/06/18 15:04 36.5 120 20 115/66 (82) 91 Nasal Cannula 3.0 05/06/18 14:38 66 16 90 Nasal Cannula 3.0 General Appearance: no apparent distress ENT: hearing grossly normal, + muffled/hoarse voice (muffled) Neck: supple, no JVD Respiratory: no respiratory distress, no accessory muscle use, + decreased breath sounds Cardiovascular: regular rate, rhythm, no edema, + normal peripheral pulses Abdomen: normal bowel sounds, non tender, soft Neurologic/Psychiatric: + disoriented Skin: normal color Laboratory Results Last 24 Hours Test 05/06/18 18:20 05/06/18 23:53 05/07/18 05:54 05/07/18 06:47 Bedside Glucose 125 mg/dl 107 mg/dl 126 mg/dl White Blood Count 10.56 K/uL Red Blood Count 3.92 M/uL Hemoglobin 11.3 g/dL Hematocrit 35.1 % Mean Corpuscular Volume 89.5 fL Mean Corpuscular Hemoglobin 28.8 pg Mean Corpuscular Hemoglobin Concent 32.2 g/dl Platelet Count 242 K/uL Mean Platelet Volume 10.8 fL Neutrophils (%) (Auto) 77.4 % Lymphocytes (%) (Auto) 13.0 % Monocytes (%) (Auto) 7.1 % Eosinophils (%) (Auto) 2.0 % Basophils (%) (Auto) 0.2 % Neutrophils # (Auto) 8.18 K/uL Lymphocytes # (Auto) 1.37 K/uL Monocytes # (Auto) 0.75 K/uL Eosinophils # (Auto) 0.21 K/uL Basophils # (Auto) 0.02 K/uL RDW Standard Deviation 50.8 fL RDW Coefficient of Variation 15.8 % Immature Granulocyte % (Auto) 0.3 % Immature Granulocyte # (Auto) 0.03 K/uL Activated Partial Thromboplast Time 45.0 SECONDS Partial Thromboplastin Ratio 1.7 Sodium Level 145 mmol/L Potassium Level 3.4 mmol/L Chloride Level 111 mmol/L Carbon Dioxide Level 27 mmol/L Anion Gap 7.0 mmol/L Blood Urea Nitrogen 9 mg/dl Creatinine 0.85 mg/dl Est Creatinine Clear Calc Drug Dose 57.2 ml/min Estimated GFR () 90.8 Estimated GFR (Non- 78.3 BUN/Creatinine Ratio 10.5 Random Glucose 124 mg/dl Calcium Level 7.6 mg/dl Test 05/07/18 07:41 05/07/18 11:57 Bedside Glucose 140 mg/dl 120 mg/dl Assessment & Plan Palliative Performance Scale: 30 % Problem list: Confusion/AMS Pneumonia PE Goals of care Palliative care recs: -Discussed with patient's son (Luisito Farris/SANTOSH) and daughter at length. Patient is DNR. -POLST form completed as follows: DNR, comfort measures only, no abx, no artificial hydration or nutrition. -Discontinue heparin gtt and abx. -Return to [facility] on hospice care. -Use Roxanol as needed for pain or SOB. Lorazepam for anxiety/agitation. -Patient's family does not want him to return to hospital. Thank you kindly for this consult. Total time spent 80 minutes with >50% of time spent at bedside with patient and family counseling/discussing goals of care, hospice, and end of life issues.
--- NOTE | 2018-05-07 14:17 | Progress Note ---
Medicine Progress Note Date & Time of Visit: May 07, 2018 at 14:05. Subjective Pt was seen and examined Lying in bed with daughter and son at bedside Family would like patient to transfer back to [facility] today for hospice Has not been eating much Slightly improves compare to when he came Objective Last 8 Hrs Date Time Temp Pulse Resp B/P (MAP) Pulse Ox O2 Delivery O2 Flow Rate FiO2 05/07/18 12:39 36.6 69 20 124/67 (86) 95 Nasal Cannula 3.0 05/07/18 08:45 Nasal Cannula 3.0 05/07/18 08:22 36.7 118 22 120/70 (87) 92 Nasal Cannula 3.0 05/07/18 07:01 118 16 91 Nasal Cannula 3.0 05/07/18 06:53 36.5 98 20 147/77 (100) 95 Room Air Physical Exam: General- Acute distress, confuse Head- atraumatic Eyes- PERRL, EOMI ENT- oropharynx clear Neck- supple, no JVD Lungs-crackles Heart- irregular rhythm Abdomen- normal bowel sounds, soft, nontender Extremities-no calf tenderness Neuro-Confused Skin- warm & dry Laboratory Results: Last 24 Hours Test 05/06/18 18:20 05/06/18 23:53 05/07/18 05:54 05/07/18 06:47 Bedside Glucose 125 mg/dl 107 mg/dl 126 mg/dl White Blood Count 10.56 K/uL Red Blood Count 3.92 M/uL Hemoglobin 11.3 g/dL Hematocrit 35.1 % Mean Corpuscular Volume 89.5 fL Mean Corpuscular Hemoglobin 28.8 pg Mean Corpuscular Hemoglobin Concent 32.2 g/dl Platelet Count 242 K/uL Mean Platelet Volume 10.8 fL Neutrophils (%) (Auto) 77.4 % Lymphocytes (%) (Auto) 13.0 % Monocytes (%) (Auto) 7.1 % Eosinophils (%) (Auto) 2.0 % Basophils (%) (Auto) 0.2 % Neutrophils # (Auto) 8.18 K/uL Lymphocytes # (Auto) 1.37 K/uL Monocytes # (Auto) 0.75 K/uL Eosinophils # (Auto) 0.21 K/uL Basophils # (Auto) 0.02 K/uL RDW Standard Deviation 50.8 fL RDW Coefficient of Variation 15.8 % Immature Granulocyte % (Auto) 0.3 % Immature Granulocyte # (Auto) 0.03 K/uL Activated Partial Thromboplast Time 45.0 SECONDS Partial Thromboplastin Ratio 1.7 Sodium Level 145 mmol/L Potassium Level 3.4 mmol/L Chloride Level 111 mmol/L Carbon Dioxide Level 27 mmol/L Anion Gap 7.0 mmol/L Blood Urea Nitrogen 9 mg/dl Creatinine 0.85 mg/dl Est Creatinine Clear Calc Drug Dose 57.2 ml/min Estimated GFR () 90.8 Estimated GFR (Non- 78.3 BUN/Creatinine Ratio 10.5 Random Glucose 124 mg/dl Calcium Level 7.6 mg/dl Test 05/07/18 07:41 05/07/18 11:57 Bedside Glucose 140 mg/dl 120 mg/dl Assessment & Plan Acute hypoxemic respiratory failure Pulmonary embolism Pneumonia CTA showed several small segmental pulmonary emboli within the right upper lobe. Extensive bilateral airspace opacities, greatest within the lower lobes. Continue heparin drip for now while in the hospital family decided to transfer back to [facility] with Hospice tomorrow when son arrives No coumadin as per family or other anticoagulants agents to be continue on discharge Continue oxygen supplement Continue abx with Zosyn now until discharge to [facility] for hospice Will D/C vanco in am Continue oxygen supplement Consider to give very low dose lasix if SOB worsening once BP improves (Crackle noted on exam) 05/07 D/C IV abx family ok with oral abx and prefer a liquid form if pt able to take Will transfer to [facility] for hospice D/C heparin drip No anticoagulant as per family since pt is in hospice family understands risk for not on anticoagulant such as saddle embolism/DVT and Palliative care on board Severe sepsis UTI/Pneumonia/colitis Urine cx positive for gram negative bacilli Elevated lactic acid trending down WBC on admission 26K , now trending to 12K Blood cx no growth Urine cx positive for Klebsiella PNA Continue Zosyn IV Will D/C Vanco IV after tonight dose Continue monitor CBC 05/07 Blood cx no growth Will D/C IV abx Zosyn and vanco WBC trending down to normal Change abx to susp form Colitis Has been having diarrhea Stool for Cdiff was negative on 04/17 CT abd/Pelvis showed mild wall thickening of the descending colon Stools for Cdiff negative No diarrhea today Flagyl D/C Hx vascular dementia. Has been confused DM type 2 Hba1c 7.5 Oral Diabetes med on hold Continue monitor BS DVT px D/C heparin drip CODE STATUS DNR Disposition Discharge to [facility] with Hospice care Current Inpatient Medications: Current Inpatient Medications Medications (Trade) Dose Ordered Sig/Steve Route Start Time Stop Time Status Last Admin Dose Admin Ioversol (Optiray 320) 111 ml UD PRN IV 05/04/18 20:45 05/08/18 20:44 Vancomycin HCl (Consult) 1 ea UD PRN N/A 05/04/18 23:15 06/03/18 23:14 Heparin Sodium/ Dextrose 500 ml @ 26 mls/hr [id number] IV 05/04/18 23:45 06/03/18 23:44 05/07/18 08:32 23 MLS/HR Acetaminophen (Tylenol Tab) 650 mg Q4H PRN PO 05/04/18 23:45 06/03/18 23:44 Nitroglycerin (Nitrostat Tab) 0.4 mg UD PRN SL 05/04/18 23:45 06/03/18 23:44 Insulin Aspart (novoLOG ASPART) SLIDING SCALE If C... Q6 SC 05/05/18 06:00 06/04/18 05:59 05/05/18 06:21 1 UNITS Glucose (Glucose 40% Gel) 15-30 GRAMS 15 GRAMS... UD PRN PO 05/04/18 23:45 06/03/18 23:44 Glucose (Glucose Chew Tab) 4-8 Tablets 4 Tabl... UD PRN PO 05/04/18 23:45 06/03/18 23:44 Dextrose (Dextrose 50% 50ML Syringe) 25-50ML 25ML FOR ... UD PRN IV 05/04/18 23:45 06/03/18 23:44 Glucagon (Glucagon Inj) 1 mg UD PRN SQ 05/04/18 23:45 06/03/18 23:44 Carbohydrates (Carbohydrates For Hypoglycemia) 15-30 GRAMS 15 grams if BSG 54-69... UD PRN PO 05/04/18 23:45 06/03/18 23:44 Miscellaneous Information (Consult) 1 ea UD PRN N/A 05/05/18 09:00 06/04/18 08:59 Insulin Glargine (Lantus Solostar Pen) 10 units HS SC 05/05/18 21:00 06/04/18 20:59 05/05/18 22:09 10 UNITS Prochlorperazine Edisylate 5 mg/ Syringe 5 ml @ 5 mls/min Q6H PRN IV 05/04/18 23:45 06/03/18 23:44 Hydromorphone HCl (Dilaudid Inj) 0.25 mg Q3H PRN IV 05/04/18 23:45 05/18/18 23:44 Oxycodone/ Acetaminophen (Percocet 5-325mg Tab) 1 tab Q6H PRN PO 05/04/18 23:45 05/18/18 23:44 Aspirin (Ecotrin Tab) 81 mg DAILY PO 05/05/18 09:00 06/04/18 08:59 Risperidone (Risperdal Tab) 0.5 mg BID PO 05/05/18 09:00 06/04/18 08:59 05/06/18 21:14 0.5 MG Simvastatin (Zocor Tab) 40 mg QPM PO 05/05/18 21:00 06/04/18 20:59 Ipratropium [place] (Atrovent 0.02% 0.5MG/2.5ML Neb) 0.5 mg Q6R INH 05/05/18 03:00 06/04/18 02:59 05/07/18 07:01 0.5 MG Levalbuterol (Xopenex 1.25MG/ 0.5ML Neb) 1.25 mg Q6R INH 05/05/18 03:00 06/04/18 02:59 05/07/18 07:01 1.25 MG Piperacillin Sod/ Tazobactam Sod 3.375 gm/Dextrose 115 ml @ 28.75 mls/ hr Q8H IV 05/05/18 04:00 05/12/18 03:59 05/07/18 13:17 28.75 MLS/HR Vancomycin HCl 1000 mg/Sodium Chloride 270 ml @ 125 mls/hr Q24H IV 05/05/18 22:00 05/12/18 21:59 05/06/18 21:57 125 MLS/HR Divalproex Sodium (Depakote Sprinkle Cap) 125 mg HS PO 05/05/18 21:00 06/04/18 20:59 05/06/18 21:14 125 MG
[2018-05-07] MEDS ORDERED: CEFD250S3 PO ×2 (14:28→14:32)
[2018-05-07] MEDS ORDERED: GUAIFENESIN SUGAR FREE 100 MG/5 ML UDC PO PRN (14:30)
[2018-05-07] MEDS ORDERED: RBTUDL5 PO (14:32)
--- NOTE | 2018-05-07 14:40 | Discharge Instructions ---
Discharge Instructions Date of Service May 07, 2018. Admission Reason for Admission: Respiratory Failure, Acute Discharge Discharge Diagnosis / Problem: Acute Hypoxemia respiratory failure, Pneumonia, UTI Discharge Goals Goal(s): Decrease discomfort, Improve function, Improve disease control Activity Recommendations Activity Limitations: resume your previous activity (as tolerated) . Instructions / Follow-Up Instructions / Follow-Up Discharge to [facility] for hospice Continue oxygen supplement with 2 to 3 L nasal cannula to keep oxygen saturation above 92% Fall precaution Continue oral antibiotic if able to take Aspiration precaution Full liquid diet advanced Follow up with speech therapy Ok to place a Torres cath if needed Current Hospital Diet Patient's current hospital diet: Clear Liquid Diet Discharge Diet Recommended Diet: Full Liquid Diet Pending Studies Studies pending at discharge: no Laboratory Results Hemoglobin A1c Test 05/04/18 20:07 Range/Units Estimated Average Glucose 169 mg/dl Hemoglobin A1c 7.5 H 4.5-5.6 % Medical Emergencies . Who to Call and When: Medical Emergencies: If at any time you feel your situation is an emergency, please call 911 immediately. . Non-Emergent Contact Non-Emergency issues call your: Primary Care Provider Call Non-Emergent contact if: temperature is above 101, you have any medication questions . . "Provider Documentation" section prepared by Ronan Candelaria. .
--- NOTE | 2018-05-07 14:47 | Discharge Summary ---
Discharge Summary Date of Service May 07, 2018. Discharge Summary Admission Date: May 04, 2018 at 23:03 Discharge Date: May 07, 2018 Discharge Disposition: residential facility (Hospice) Principal Diagnosis: Acute Hypoxemia respiratory failure Severe Sepsis Secondary Diagnoses/Problems: Pneumonia Acute PE UTI Vascular Dementia DM type 2 Procedures: CT OF THE ABDOMEN AND PELVIS WITH CONTRAST CLINICAL HISTORY: Sepsis. COMPARISON STUDY: None. TECHNIQUE: Following IV administration of 94 mL of Optiray-320, axial images of the abdomen and pelvis were obtained from the lung bases to the proximal femurs. Images were reviewed in the axial, sagittal, and coronal planes. IV contrast was administered without complication. A dose lowering technique was utilized adhering to the principles of ALARA. Scan was repeated due to significant motion artifact on the initial exam. FINDINGS: Please note that the chest CT will be reported separately. Extensive bilateral airspace opacities are noted. The liver, spleen, adrenal glands and kidneys are unremarkable. There is no biliary or pancreatic ductal dilatation. There is no hydronephrosis. Pancreatic glandular atrophy is noted. No pneumatosis, free air or portal venous gas is noted. This exam is mildly compromised by motion artifact. Note is made of apparent wall thickening of the a sending colon. There is colonic diverticulosis. There is no evidence for acute diverticulitis. Moderate amount of stool within the rectum is noted. A Torres balloon and gas are noted within the bladder. Bladder wall thickening with mild adjacent infiltration. Prostate gland is surgically absent. Images of the pelvis are degraded by streak artifact from a left hip arthroplasty. Postoperative findings within the spine are noted. Old T12 compression fracture is noted. No suspicious osseous lesion is noted. IMPRESSION: 1. Apparent mild wall thickening of the descending colon. Findings are likely due to underdistention however a nonspecific colitis could appear similar. No bowel obstruction. Colonic diverticulosis without evidence for acute diverticulitis. 2. Study mildly compromised by motion artifact. 3. Bladder wall thickening which could be correlated with urinalysis to exclude cystitis. 4. Moderate amount of stool within the rectum. Electronically signed by: Carlos Hollis M.D. 05/04/2018 10:06 PM Dictated Date/Time: 05/04/2018 9:[address] ANGIOGRAPHY OF THE CHEST, PULMONARY EMBOLUS PROTOCOL CLINICAL HISTORY: Shortness of breath. Unresponsive. COMPARISON STUDY: Chest radiograph May 04, 2018. TECHNIQUE: Following IV administration of 94 mL of Optiray-320, helical axial images of the chest were obtained utilizing the pulmonary embolus protocol. Maximal intensity projections and sagittal and coronal reformats were viewed on an independent 3D workstation. IV contrast was administered without complication. A dose lowering technique was utilized adhering to the principles of ALARA. CT DOSE: 1414.34 mGy.cm FINDINGS: There are several small segmental pulmonary emboli within the right upper lobe. The heart is moderately enlarged. There are median sternotomy wires and postoperative findings consistent with bypass grafting. There is no pericardial effusion. Mildly enlarged right hilar lymph nodes measure up to 1.3 cm in short axis diameter. There is no pneumothorax or pleural effusion. Extensive bilateral lower lobe airspace opacity is noted with mild opacities within the lingula and moderate right middle lobe opacity. No cavitation is present. Moderate secretions within the distal trachea and right mainstem bronchus are noted. No suspicious osseous lesion is noted. There is an old T12 compression fracture. The abdomen and pelvis will be reported separately. IMPRESSION: 1. Several small segmental pulmonary emboli within the right upper lobe. Evaluation for additional pulmonary emboli compromised given respiratory motion artifact. 2. Extensive bilateral airspace opacities, greatest within the lower lobes. The findings favor pneumonia although pulmonary edema could appear similar. 3. Moderate cardiomegaly. 4. Mild right hilar lymphadenopathy which is likely reactive. A follow-up chest CT in 3 months to ensure resolution is recommended. 5. Moderate mucus within the distal trachea and right mainstem bronchus. Electronically signed by: Carlos Hollis M.D. 05/04/2018 9:58 PM Dictated Date/Time: 05/04/2018 9:48 PM [~ rep ct add3]] CHEST ONE VIEW PORTABLE CLINICAL HISTORY: Sepsis. COMPARISON STUDY: No previous studies for comparison. FINDINGS: Evaluation is suboptimal given difficulty positioning. No pneumothorax or definite pleural effusion is noted. There is bibasilar interstitial thickening and airspace opacities. Median sternotomy wires are noted. Cardiac size is normal. There are no radiographic evidence of pulmonary edema. IMPRESSION: Bibasilar opacities and interstitial thickening which favor pneumonia. Atelectasis or pulmonary edema could appear similar. Radiographic follow-up is recommended. Electronically signed by: Carlos Hollis M.D. 05/04/2018 8:21 PM Dictated Date/Time: 05/04/2018 8:20 PM Medication Reconciliation New Medications: Cefdinir (Omnicef) 250 Mg/5 Ml Barbra 300 MG PO BID for 4 Days, #50 ML Guaifenesin (Robitussin) 100 Mg/5 Ml Arely 100 MG PO Q8 PRN for Cough for 7 Days Continued Medications: Acetaminophen Tab (Tylenol) 325 Mg Tab 325 MG PO Q4 PRN for Pain, TAB Aspirin (Aspirin Ec) 81 Mg Tab 81 MG PO DAILY Diphenoxylate/Atropine (Lomotil) Tab 1 TAB PO QID PRN for Diarrhea, TAB Divalproex Sodium (Divalproex Sodium Dr) 125 Mg Tabec 125 MG PO HS Furosemide (Lasix) 40 Mg Tab 40 MG PO Q2D, TAB Lactobacillus (Acidophilus) 1 Cap Cap 175 MG PO BID Melatonin (Melatonin) 3 Mg Cap 3 MG PO HS Metformin Hcl Er (Glucophage Er) 500 Mg Tab 500 MG PO QPM, TAB Nystatin (Topical) (Nystatin) 1 Pow Pow 1 APPLN TOP BID PRN for RASH Potassium Chloride (Micro-K Ext Rel) 10 Meq Capcr 10 MEQ PO DAILY, CAP Pyridoxine (Vitamin B6) 100 Mg Tab 100 MG PO QPM, TAB Risperidone (Risperdal) 0.5 Mg Tab 0.5 MG PO BID, TAB Simvastatin (Zocor) 80 Mg Tab 40 MG PO QPM, TAB [Calmoseptine Oint] () 1 APPLN TOP AMPM Admission Information HPI (per Admitting provider): Pt is 87 y/o M with PMH Alzheimer dementia, DM II, A. fib, CAD, HTN, gastroparesis, GERD, HLD, insomnia presented to ER from [facility] for lethargy and altered mental status. Limited history obtained from staff and [facility]. Staff report patient usually ambulates with walker. Reports is usually confused but does talk. Reports patient on mechanical soft diet. Reports this evening he was drinking and choked. States at dinner patient was lethargic and noted to be short of breath. Patient felt hot and EMS was called. Per report when EMS arrived patient was slumped over in chair, febrile and tachycardic and was given 500 mL NSS in route. Noted in patient's med rec that he was on Zithromax on 04/24/18-04/28/18. Staff person spoke with this evening was unsure why patient was on Zithromax. Staff reports patient has had diarrhea for the past 2-3 weeks. Negative C. difficile test on 04/17/18. Reports patient is on hospice care. Awaiting to speech to family for further information Physical Exam (per Admitting): General Appearance: + thin, + pertinent finding (ill appearing, no apparent distress at this time - sitting upright in bed with oxymask on, resp: 20, no retractions) Head: normocephalic, atraumatic Eyes: PERRL, sclerae normal ENT: + pertinent finding (mucous membranes dry) Neck: trachea midline Respiratory/Chest: + decreased breath sounds Cardiovascular: + tachycardia (irregular) Abdomen/GI: normal bowel sounds, soft (no apparent tenderness to palpation) Extremities/Musculoskelatal: + pertinent finding (BLE with venous stasis changes. no significant edema or warmth/erythema) Neurologic/Psych: + pertinent finding (awake, non-verbal, does not follow commands) Skin: + pertinent finding (hot, dry) Hospital Course Acute hypoxemic respiratory failure Pulmonary embolism Pneumonia CTA showed several small segmental pulmonary emboli within the right upper lobe. Extensive bilateral airspace opacities, greatest within the lower lobes. Continue heparin drip for now while in the hospital family decided to transfer back to [facility] with Hospice tomorrow when son arrives No coumadin as per family or other anticoagulants agents to be continue on discharge Continue oxygen supplement Continue abx with Zosyn now until discharge to [facility] for hospice Will D/C vanco in am Continue oxygen supplement Consider to give very low dose lasix if SOB worsening once BP improves (Crackle noted on exam) 05/07 D/C IV abx family ok with oral abx and prefer a liquid form if pt able to take Will transfer to [facility] for hospice D/C heparin drip No anticoagulant as per family since pt is in hospice family understands risk for not on anticoagulant such as saddle embolism/DVT and Palliative care on board Severe sepsis UTI/Pneumonia/colitis Urine cx positive for gram negative bacilli Elevated lactic acid trending down WBC on admission 26K , now trending to 12K Blood cx no growth Urine cx positive for Klebsiella PNA Continue Zosyn IV Will D/C Vanco IV after tonight dose Continue monitor CBC 05/07 Blood cx no growth Will D/C IV abx Zosyn and vanco WBC trending down to normal Change abx to susp form Colitis Has been having diarrhea Stool for Cdiff was negative on 04/17 CT abd/Pelvis showed mild wall thickening of the descending colon Stools for Cdiff negative No diarrhea today Flagyl D/C Hx vascular dementia. Has been confused DM type 2 Hba1c 7.5 Oral Diabetes med on hold Continue monitor BS DVT px D/C heparin drip CODE STATUS DNR Disposition Discharge to [facility] with Hospice care Total time spent on discharge = 35 minutes This includes examination of the patient, discharge planning, medication reconciliation, and communication with other providers. Discharge Instructions Discharge Instructions Date of Service May 07, 2018. Admission Reason for Admission: Respiratory Failure, Acute Discharge Discharge Diagnosis / Problem: Acute Hypoxemia respiratory failure, Pneumonia, UTI Discharge Goals Goal(s): Decrease discomfort, Improve function, Improve disease control Activity Recommendations Activity Limitations: resume your previous activity (as tolerated) . Instructions / Follow-Up Instructions / Follow-Up Discharge to [facility] for hospice Continue oxygen supplement with 2 to 3 L nasal cannula to keep oxygen saturation above 92% Fall precaution Continue oral antibiotic if able to take Aspiration precaution Full liquid diet advanced Follow up with speech therapy Ok to place a Torres cath if needed Current Hospital Diet Patient's current hospital diet: Clear Liquid Diet Discharge Diet Recommended Diet: Full Liquid Diet Pending Studies Studies pending at discharge: no Laboratory Results Hemoglobin A1c Test 05/04/18 20:07 Range/Units Estimated Average Glucose 169 mg/dl Hemoglobin A1c 7.5 H 4.5-5.6 % Medical Emergencies . Who to Call and When: Medical Emergencies: If at any time you feel your situation is an emergency, please call 911 immediately. . Non-Emergent Contact Non-Emergency issues call your: Primary Care Provider Call Non-Emergent contact if: temperature is above 101, you have any medication questions . . "Provider Documentation" section prepared by Ronan Candelaria. .
--- NOTE | 2018-05-09 16:06 | Pharmacy Progress Note ---
ED Pharmacist Culture FollowUp Date of Service: May 09, 2018. Urine cx form 05/04 if growing carmen-sensitive kleb pneumoniae. He was admitted to [facility] on 05/[address] Candelaria on 05/07 w/ Rx for Cefdinir. This organism is sensitive to this ABX choice. No action required.
--- NOTE | 2018-05-09 16:18 | Pharmacy Progress Note ---
ED Pharmacist Culture FollowUp Date of Service: May 09, 2018. Lab is reporting growth of gram positive cocci in 1 of 4 blood cx bottles ( anaerobic bottle). Currently reported as GPC in clusters. Pt was admitted to [facility] and discharged to [facility] by Dr Candelaria on Cefdinir. I contacted [facility] and notified them of these results. They do have a physician who can review the results. I faxed the blcx result to [phone] per their request. No further action from ED standpoint.
== END 2018-05-07 15:30 | disposition home health service (06) | DRG 871 ==
LOC: EDBD 19:55 → C.EDB 19:57 → C.2T 23:03 → ENRESERV 23:09
PROVIDERS: ADMIT Internal Medicine; ATTEND Internal Medicine
DX: A41.9 Sepsis, unspecified organism (principal); J69.0 Pneumonitis due to inhalation of food and vomit; I26.99 Other pulmonary embolism without acute cor pulmonale; J96.01 Acute respiratory failure with hypoxia; N39.0 Urinary tract infection, site not specified; N17.9 Acute kidney failure, unspecified; R65.20 Severe sepsis without septic shock; F01.50 Vascular dementia, unspecified severity, without behavioral disturbance, psychotic disturbance, mood disturbance, and anxiety; E11.9 Type 2 diabetes mellitus without complications; K52.9 Noninfective gastroenteritis and colitis, unspecified; Z66 Do not resuscitate; Z79.82 Long term (current) use of aspirin